=== PATIENT | male | born 1935 | race Caucasian/White ===

== ENCOUNTER 2018-02-04 23:03 | Inpatient (IN) | payer MEDICARE, BC ==
[~2018-02-04] VITALS: Ht 167.6 cm; Wt 68.9 kg
[2018-02-04] MEDS ORDERED: hydrALAZINE HCL IV 20 MG VIAL ONE ×2 (23:13→23:59)
--- NOTE | 2018-02-04 23:25 | NUR ---
BBRA FROM HOME C/C BY PT "I WENT TO USE RESTROOM LAST NIGHT AND FELT WEAK IN MY LEGS; CONTINUED FEELING WEAK ALL DAY AND LAST HAD CEREAL AT 0800 TODAY; 89G/DL FSBS". PT DENIES HAVING ANY PAIN AT TIME OF ARRIVAL. PT DENIES CP, SOB, COUGH. PT ABLE TO ARTICULATE HIS WORDS WITHOUT ANY SPEACH IMPEDIMENTS NOTED. EQUAL SENSATIONS BILATERAL. FACIAL SYMETRY NOTED. NO S/S OF ACUTE DISTRESS NOTED. RR EVEN AND UNLABORED. PT ABLE TO MOVE BILATERAL LOWER EXTREMITIES AND MOVE HIMSELF UP IN BED. PT PLACED ON PLUGGER MAN AND POX. PT SAFETY AND COMFORT MEASURES IN PLACE. BEDSIDE FOR EVAL.
[2018-02-04 23:29] LABS: BASOPHILS # (AUTO) 0.1 /CMM (0.0-0.2); BASOPHILS % (AUTO) 0.8 % (0.0-2.0); EOSINOPHILS % (AUTO) 0.9 % (0.0-6.0); HEMATOCRIT 34 % (39-51); HEMOGLOBIN 11.3 g/dL (13.5-17.5); LYMPHOCYTES # (AUTO) 0.4 /CMM (0.8-4.8); LYMPHOCYTES % (AUTO) 5.4 % (20.0-44.0); MEAN CORPUSCULAR HGB CONC 34 g/dl (31.0-36.0); MEAN CORPUSCULAR VOLUME 97 fL (80-96); MONOCYTES # (AUTO) 0.5 /CMM (0.1-1.30); MONOCYTES % (AUTO) 6.7 % (2.0-12.0); NEUTROPHILS # (AUTO) 6.8 /CMM (1.8-8.9); NEUTROPHILS % (AUTO) 86.2 % (43.0-81.0); PLATELET COUNT (AUTO) 247 /CMM (150-450); RED BLOOD CELL COUNT(AUTO) 3.46 MIL/uL (4.5-6.0); WHITE BLOOD COUNT (AUTO) 7.9 K/uL (4.3-11.0)
[2018-02-04] MEDS ORDERED: hydrALAZINE HCL IV 20 MG VIAL IV ONE (23:30)
--- NOTE | 2018-02-04 23:34 | NUR ---
pt to ct
[2018-02-04 23:41] LABS: CALCIUM, SERUM 8.4 mg/dL (8.5-10.1); CARBON DIOXIDE 22 mmol/L (21-32); CHLORIDE 101 mmol/L (98-107); CREATININE 6.7 mg/dL (0.6-1.3); GLUCOSE 104 mg/dL (74-106); POTASSIUM 4.4 mmol/L (3.5-5.1); SODIUM SERUM 138 mmol/L (136-145); UREA NITROGEN, BLOOD 49 mg/dL (7-18)
--- NOTE | 2018-02-04 23:45 | NUR ---
PT BACK FROM CT
[2018-02-04 23:47] LABS: ALANINE AMINOTRANSFERASE 16 U/L (12-78); ALKALINE PHOSPHATASE 60 U/L (46-116); ASPARTATE AMINOTRANSFERASE 13 U/L (15-37); BILIRUBIN,DIRECT 0.1 mg/dL (0.0-0.2); BILIRUBIN,TOTAL 0.3 mg/dL (0.2-1.0); TOTAL PROTEIN, SERUM 7.3 g/dL (6.4-8.2)
--- NOTE | 2018-02-04 23:47 | NUR ---
URINAL PROVIDED TO PT. PT STATES HE IS UNABLE TO GIVE URINE SAMPLE AT THIS TIME
[2018-02-05] VITALS (7 sets, daily range): BP systolic 128–188; BP diastolic 64–95
[2018-02-05] MEDS ORDERED: hydrALAZINE HCL IV 20 MG VIAL IV ONE
--- NOTE | 2018-02-05 00:07 | NUR ---
DAUGHTER BEDSIDE WITH PT
--- NOTE | 2018-02-05 00:26 | NUR ---
WATER AND JUICES PROVIDED TO PT. PT ABLE TO DRINK FLUIDS WITHOUT COUGHING OR JOKING.
[2018-02-05] MEDS ORDERED: IV NS 0.9% 500 ML BAG IV ONE (00:30)
--- NOTE | 2018-02-05 01:55 | NUR ---
REPORT GIVEN TO LOVE BUTLER FOR ISAMAR
[2018-02-05] MEDS ORDERED: ROSU20TA2 PO (02:37)
[2018-02-05] MEDS ORDERED: CLOP75TA15 PO (02:37)
[2018-02-05] MEDS ORDERED: HYDR-4076 PO (02:37)
[2018-02-05] MEDS ORDERED: ERYT30GE8 TP (02:37)
[2018-02-05] MEDS ORDERED: HYDR-4077 PO (02:37)
[2018-02-05] MEDS ORDERED: GANC5GEL2 OP (02:37)
[2018-02-05] MEDS ORDERED: VALA10002 PO (02:37)
[2018-02-05] MEDS ORDERED: ASPI-605 PO (02:37)
[2018-02-05] MEDS ORDERED: DILT-32 PO (02:37)
[2018-02-05] MEDS ORDERED: Z GUARD REMEDY 2 OZ OINT TP PRN (03:00)
[2018-02-05] MEDS ORDERED: ONDANSETRON HCL/PF 4 MG/2 ML VIAL IVP PRN (03:00)
[2018-02-05] MEDS ORDERED: ZOLPIDEM TARTRATE 5 MG TABLET PO PRN (03:00)
[2018-02-05] MEDS ORDERED: MAG HYDROX/AL HYDROX/SIMETH 30 ML UDC PO PRN (03:00)
[2018-02-05] MEDS ORDERED: MAGNESIUM HYDROXIDE 30 ML UDC PO PRN (03:00)
[2018-02-05] MEDS: IV NS 0.9% 1,000 ML IV PRN ×2 (04:01→17:29)
[2018-02-05] MEDS: ACETAMINOPHEN 325 MG TABLET PO PRN (04:04)
--- NOTE | 2018-02-05 05:43 | NUR ---
ENDING NOTES: TYLENOL GIVEN FOR H/A PAIN WITH RELIEF. NOTED ALERT AND HE IS AWARE HE IS CONFUSED AT TIMES. HE WILL YELL OUT "HELP IS ANY OUT THERE, I NEED HELP" WHEN AWNSWERED HIM I NOTED HE JUST NEEDS TO BE REORIENTATED, HE SEEMS FRIEGHTENED WITH AT TIMES CONFUSION. TV ON TO HELP HIM STAY ORIENTATED. OWN CPAP MACHINE AT THE BEDSIDE.
[2018-02-05 06:47] LABS: THYROID STIMULATING HORMONE 4.315 uIU/mL (0.358-3.74)
--- NOTE | 2018-02-05 07:00 | NUR ---
CONVEYOR LOADER NOTES RECEIVED PT IN BED, A/OX2. PT IS COMPLAINING OF "THE ROOM MOVING" AND "SEEING GREEN." PT IS ON ROOM AIR O2 SAT WNL. AV SHUNT IN LEFT ARM. RFA IV NO S/SX INFECTION. IV FLUIDS RUNNING. ON CONTACT ISOLATION FOR SHINGLES ON FACE WITH CRUSTING NOTED. PER DAUGTER, THEY WOULD LIKE TO CONTINUE TX AT [facility] WHERE THEY HAVE BEEN TREATED. ON TELE PT IS [facility] 103. PT IS WEAK BLE; BED ALARM ACTIVATED AND DAUGHTER AT BEDSIDE. CALL LIGHT IN REACH. WILL CONT TO MONITOR.
--- NOTE | 2018-02-05 07:30 | NUR ---
DESIGN SUPERVISOR NOTES PER DAUGHTER, PT IS MORE CONFUSED AND HALLUCINATING THAN LAST NIGHT. SUSPECTS ADVERSE EFFECT OF VALTREX, WILL NOTIFY MD.
[2018-02-05] MEDS: hydrALAZINE HCL 25 MG TABLET PO PRN ×2 (07:53→21:22)
--- NOTE | 2018-02-05 08:15 | NUR ---
INSURANCE RATER NOTES DIALYSIS STARTED ON PT. BP NOW 156/83 AFTER HYDRALAZINE. PT DOES NOT TAKE BP MEDS BEFORE HD INCLUDING ASPIRIN, PLAVIX AND LOVENOX PER DAUGHTER.
[2018-02-05] MEDS: hydrALAZINE HCL 50 MG TABLET PO SCH ×3 (08:58→17:18)
[2018-02-05] MEDS: DILTIAZEM HCL CD 120 MG PO SCH (08:59)
[2018-02-05] MEDS ORDERED: CLOPIDOGREL BISULFATE 75 MG TABLET PO SCH (09:00)
[2018-02-05] MEDS: VALACYCLOVIR HCL 500 MG TABLET PO SCH ×3 (09:00→17:00)
[2018-02-05] MEDS ORDERED: ASPIRIN EC 81 MG TABLET.DR PO SCH (09:00)
[2018-02-05] MEDS ORDERED: ENOXAPARIN SODIUM 40 MG/0.4 ML DISP.SYRIN SQ SCH (09:00)
[2018-02-05] MEDS: ATORVASTATIN 40 MG TABLET PO SCH (10:18)
--- NOTE | 2018-02-05 11:51 | NUR ---
SOIL CONSERVATION AIDE NOTES PER DR GONZALEZ, YOHANNES VALROSS. NEUROLOGY TO EVALUATE PT FOR AMS. OK FOR PT TO USE EYE OINTMENT FROM HOME.
--- NOTE | 2018-02-05 12:45 | NUR ---
CARBONIZER TESTER NOTE PER RADIOLOGY (GONZALO) PT WILL NOT BE ABLE TO HAVE MRI WITH CONTRAST D/T ELEVATED BUN/CREATININE LEVELS; CAN DO BEFORE NEXT DIALYSIS.
[2018-02-05] MEDS ORDERED: ERYT3.5O9 EACHEYE (17:15)
[2018-02-05] MEDS: HYDROCODONE/APAP 5/325MG 1 EACH TABLET PO PRN (17:18)
[2018-02-05 17:53] LABS: CSF GLUCOSE 76 mg/dL (40-70); CSF PROTEIN 46.6 mg/dL (15-45)
--- NOTE | 2018-02-05 18:54 | NUR ---
STATION ENGINEER CHIEF NOTES DR AUGUST TO BE NOTIFIED OF CSF RESULTS AT [phone]
[2018-02-05] MEDS ORDERED: CEFTRIAXONE 1 G VIAL IV SCH (19:30)
--- NOTE | 2018-02-05 19:30 | NUR ---
VISCERA WASHER NOTES PT IN BED, SITTING UP. DAUGHTER AT BEDSIDE. PT IS ANXIOUS; HALLUCINATING. ALL NEEDS ATTENDED TO. ENDORSED TO PM NURSE FOR ISAMAR. BED IN LOCKED/LOWEST POSITION. CALL LIGHT IN REACH.
[2018-02-05] MEDS ORDERED: FEE PK DOSING 1 MIN EA MC ONE (20:19)
[2018-02-05] MEDS ORDERED: VANCOMYCIN 1 GM in IV D5W 250 ML IV ONE (20:30)
[2018-02-05] MEDS ORDERED: ACYCLOVIR IV 1 GM in IV NS 0.9% 250 ML IV SCH (21:00)
[2018-02-05] MEDS ORDERED: ACYCLOVIR IV 500 MG in IV D5W 100 ML IV SCH (21:00)
--- NOTE | 2018-02-05 21:03 | NUR ---
SPORTS INSTRUCTOR OPENING NOTES RECEIVED REPORT FROM ANA LUISA ALEMAN. PATIENT A/A/O X1 TO NAME W/ CONFUSION NOTED. BREATHING EVEN & UNLABORED, TOLERATING ROOM AIR. NO RESPIRATORY DISTRESS NOTED. ON TELE W/ SINUS TACH, HR 120. RIGHT FOREARM IV #20 INTACT & PATENT W/ DRESSING CDI & IVF NS INFUSING WELL @ 75 ML/HR. DENIES ANY PAIN OR DISCOMFORT @ THIS TIME. SAFETY MEASURES IN PLACE W/ SIDE RAILS UP & BED ALARM ON. WILL CONTINUE TO MONITOR.
[2018-02-05] MEDS ORDERED: CEFTRIAXONE 2 G in IV D5W 100 ML IV SCH (22:00)
[2018-02-06] VITALS (18 sets, daily range): BP systolic 137–188; BP diastolic 58–131
[2018-02-06] MEDS ORDERED: LORAZEPAM INJ 2 MG/ML VIAL IV ONE ×2 (01:00→11:30)
[2018-02-06] MEDS ORDERED: IV NS 0.9% 250 ML IV ONE (01:00)
--- NOTE | 2018-02-06 01:00 | NUR ---
COLLECTION TEAM LEAD NOTES PATIENT NOTED TO BE VERY RESTLESS W/ SOB & DESATTING. DR HOOD NOTIFIED OF PATIENT'S CONDITION & RECEIVED NEW ORDERS FOR X1 ATIVAN, ABG, EKG & ROUTINE BREATHING TX. NEW ORDERS NOTED & CARRIED OUT.
[2018-02-06] MEDS ORDERED: PIPERACILLIN /TAZOBACTAM 2.25 G VIAL IV ONE (01:19)
[2018-02-06 01:20] LABS: ABG BASE EXCESS -2.5 mmol/L; ABG OXYGEN SATURATION 93.6 % (92.0-98.5); ABG PCO2 30.5 mmHg (35.0-45.0); ABG PH 7.449 (7.350-7.450); ABG PO2 70.8 mmHg (75.0-100.0); AaDO2 121.7 mmHg; COHb 0.5 % (0.5-1.5); MetHb 0.5 % (0.0-1.5); O2Hb 92.7 % (94.0-97.0); SITE, ABG Right Radial; VENT MODE, BG NC 4L
[2018-02-06] MEDS ORDERED: ZOSYN IVPB 2.25 G in IV D5W 50ml IV ONE (01:30)
[2018-02-06] MEDS: IPRATROPIUM NEB FS 0.5 MG/2.5 ML AMPUL.NEB NEB SCH ×7 (01:36→23:30)
[2018-02-06] MEDS ORDERED: PIPERACILLIN /TAZOBACTAM 4.5 G in IV D5W 50 ML IV SCH (06:00)
--- NOTE | 2018-02-06 07:00 | NUR ---
CLIENT CARE SPECIALIST INITIAL NOTES RECEIVED PT IN BED, PT DISORIENTED A/OX 2. ASLEEP BUT EASILY AROUSABLE. O2 NC 4L MAINTAINING O2 ABOVE 90. IV SL NO S/SX INFECTION. BED IN LOCKED/LOWEST POSITION. CALL LIGHT IN REACH. WILL CONT TO MONITOR.
[2018-02-06 07:28] LABS: BILIRUBIN,URINE NEGATIVE (NEGATIVE); BLOOD, URINE 1+ Ery/uL (NEGATIVE); COLOR,URINE YELLOW (YELLOW); KETONES,URINE TRACE (NEGATIVE); LEUKOCYTE ESTERASE ,URINE NEGATIVE (NEGATIVE); NITRITE, URINE NEGATIVE (NEGATIVE); PH,URINE 7.5 (5.0-8.0); PROTEIN,URINE 3+ mg/dl (NEGATIVE); UGLUCOSE 1+ mg/dL (NEGATIVE); UROBILINOGEN,URINE 0.2 EU/dL (0.2)
[2018-02-06 07:38] LABS: APPEARANCE,URINE CLEAR (CLEAR)
[2018-02-06 07:55] LABS: BACTERIA,URINE Rare /HPF (None Seen); SQUAMOUS EPITHELIAL CELL,UR Rare /HPF (None Seen)
[2018-02-06 08:31] LABS: BASOPHILS % (AUTO) 0.2 % (0.0-2.0); HEMATOCRIT 31 % (39-51); HEMOGLOBIN 10.4 g/dL (13.5-17.5); LYMPHOCYTES # (AUTO) 0.2 /CMM (0.8-4.8); LYMPHOCYTES % (AUTO) 1.3 % (20.0-44.0); MEAN CORPUSCULAR HGB CONC 34 g/dl (31.0-36.0); MEAN CORPUSCULAR VOLUME 96 fL (80-96); MONOCYTES # (AUTO) 0.6 /CMM (0.1-1.30); MONOCYTES % (AUTO) 4.4 % (2.0-12.0); NEUTROPHILS % (AUTO) 94.1 % (43.0-81.0); PLATELET COUNT (AUTO) 281 /CMM (150-450); RED BLOOD CELL COUNT(AUTO) 3.21 MIL/uL (4.5-6.0); WHITE BLOOD COUNT (AUTO) 12.7 K/uL (4.3-11.0)
[2018-02-06 08:35] LABS: CHOLESTEROL 152 mg/dL (<200); HDL CHOLESTEROL 69 mg/dL (40-60); LDL 78 mg/dL (0-99); TRIGLYCERIDES 61 mg/dL (30-150)
[2018-02-06 08:37] LABS: CALCIUM, SERUM 8.1 mg/dL (8.5-10.1); CARBON DIOXIDE 21 mmol/L (21-32); CHLORIDE 97 mmol/L (98-107); CREATININE 5.3 mg/dL (0.6-1.3); GLUCOSE 154 mg/dL (74-106); PHOSPHORUS 6.3 mg/dL (2.5-4.9); POTASSIUM 4.5 mmol/L (3.5-5.1); SODIUM SERUM 134 mmol/L (136-145); UREA NITROGEN, BLOOD 39 mg/dL (7-18)
[2018-02-06] MEDS: ASPIRIN 81 MG TAB.CHEW PO SCH (08:53)
[2018-02-06] MEDS: HYDROCODONE/APAP 5/325MG 1 EACH TABLET PO PRN (08:53)
[2018-02-06] MEDS: PIPERACILLIN /TAZOBACTAM 2.25 G in IV D5W 50 ML IV SCH ×2 (09:55→17:37)
[2018-02-06] MEDS: hydrALAZINE HCL 50 MG TABLET PO SCH ×4 (10:02→17:35)
[2018-02-06] MEDS: ATORVASTATIN 40 MG TABLET PO SCH (10:03)
[2018-02-06] MEDS: DILTIAZEM HCL CD 120 MG PO SCH (10:03)
[2018-02-06 13:08] LABS: VARICELLA ZOSTER IgG >4000 index (Immune >165)
--- NOTE | 2018-02-06 15:48 | NUR ---
CSF VZV WITH PCR SENT TO LAB, TAKES 72H
--- NOTE | 2018-02-06 17:00 | NUR ---
SHRAVAN RN NOTES PT TRANSFERRED TO ICU. REPORT GIVEN TO LOVE SCHNEIDER. DAUGHTERS AT BEDSIDE. ALL BELONGINGS SENT WITH PT.
[2018-02-06] MEDS: CLOPIDOGREL BISULFATE 75 MG TABLET PO SCH (17:35)
[2018-02-06] MEDS: METOPROLOL TARTRATE 50 MG TABLET PO SCH ×2 (17:36→23:25)
--- NOTE | 2018-02-06 17:54 | NUR ---
INITIAL ECHO FINDINGS SHOWED EF 55-60%~ W/ SEVERE PULM HTN 70mmHg AND PRESENCE OF PLEURAL EFFUSION. ADVISED PRELIMINARY RESULTS TO CHARGE NURSE (CONSUELO).
[2018-02-06] MEDS ORDERED: ACYCLOVIR IV 0.75 GM in IV D5W 250 ML IV SCH (18:00)
--- NOTE | 2018-02-06 18:04 | NUR ---
received pt from SHRAVAN, s/p AMS, NSTEMI, alert, confused, follows commands at times, ST, on 4L 02 sat well, lungs congested, no edema, HD pt, v/s stable, no pain, sitter at the bedside.
[2018-02-06] MEDS ORDERED: HEPARIN SODIUM, PORCINE 5000 UNITS/1 ML VIAL IV ONE (18:30)
--- NOTE | 2018-02-06 19:10 | NUR ---
ICU/RM RECEIVED PT ON VENT VIA ORAL ETT ON A/C 10,30%FI02 SAT.95%.PT AWAKE ALERT ORIENTED TO NAME,RE-ORIENTED TO TIME ,PLACE AND SURROUNDINGS.
--- NOTE | 2018-02-06 20:00 | NUR ---
ICU/RN RECEIVED PT YELLING,RESTLESS AND COMBATIVE.SITTER AT BEDSIDE,PT KEEPS TAKING OFF OXYGEN.SO BILATERAL SOFT WRIST RESTRAINTS RE-APPLIED.PT UNCOOPERATIVE.
[2018-02-06] MEDS: HEPARIN INFUSION/D5W 500 ML IV PRN (20:20)
--- NOTE | 2018-02-06 20:20 | NUR ---
ICU/RN. ON HEPARIN DRIP AT 1000UNITS/HR AFTER BOLUS OF 4,700 HEPARIN.
[2018-02-07] VITALS (24 sets, daily range): BP systolic 106–172; BP diastolic 45–99
--- NOTE | 2018-02-07 | NUR ---
ICU/RN SPITS AT NURSE AFTER GIVING LOPRESSOR PO,THEN YELLS INCOMPREHENSIBLE WORDS.TALK TO SELF.ATTEMPTS TO TAKE OFF RESTRAINTS..EXPLAINED IMPORTANCE OF RESTRAINTS AND REASSURED PT.THAT IT WILL BE DC'D,IF HE BEHAVES.
[2018-02-07] MEDS: PIPERACILLIN /TAZOBACTAM 2.25 G in IV D5W 50 ML IV SCH ×2 (01:10→08:10)
[2018-02-07] MEDS: IPRATROPIUM NEB FS 0.5 MG/2.5 ML AMPUL.NEB NEB SCH ×6 (02:46→23:49)
--- NOTE | 2018-02-07 04:00 | NUR ---
ICU/RN HELPED SITTER TO BATHED PT.,ANTONIO. WITH DIFFICULTY PT VERY UNCOOPERATIVE
[2018-02-07 04:53] LABS: HEMATOCRIT 29 % (39-51); HEMOGLOBIN 9.6 g/dL (13.5-17.5); LYMPHOCYTES # (AUTO) 0.3 /CMM (0.8-4.8); LYMPHOCYTES % (AUTO) 2.4 % (20.0-44.0); MEAN CORPUSCULAR HGB CONC 33 g/dl (31.0-36.0); MEAN CORPUSCULAR VOLUME 96 fL (80-96); MONOCYTES # (AUTO) 0.9 /CMM (0.1-1.30); MONOCYTES % (AUTO) 6.3 % (2.0-12.0); NEUTROPHILS # (AUTO) 12.6 /CMM (1.8-8.9); NEUTROPHILS % (AUTO) 91.3 % (43.0-81.0); PLATELET COUNT (AUTO) 286 /CMM (150-450); RED BLOOD CELL COUNT(AUTO) 3.03 MIL/uL (4.5-6.0); WHITE BLOOD COUNT (AUTO) 13.8 K/uL (4.3-11.0)
[2018-02-07 05:17] LABS: CALCIUM, SERUM 8.3 mg/dL (8.5-10.1); CARBON DIOXIDE 24 mmol/L (21-32); CHLORIDE 97 mmol/L (98-107); CREATININE 6.8 mg/dL (0.6-1.3); GLUCOSE 126 mg/dL (74-106); POTASSIUM 4.6 mmol/L (3.5-5.1); SODIUM SERUM 133 mmol/L (136-145); UREA NITROGEN, BLOOD 57 mg/dL (7-18)
[2018-02-07 05:47] LABS: B-TYPE NATRIURETIC PEPTIDE 136901 PG/ML (0-125)
[2018-02-07] MEDS: METOPROLOL TARTRATE 50 MG TABLET PO SCH ×4 (05:53→23:04)
--- NOTE | 2018-02-07 07:42 | NUR ---
FEATHER WASHER NOTE PATENT ION BED , YELLING OUT AND RESTLESS , ON TELE MONITOR SR HR 84 , ON 4L NC SAT 96%. ON HEPARIN DRIP ORDERED, RT FA HL INTACT , BED IN LOWEST ND LOCKED POSITION , NO SOB NOTED AT THIS TIME , AV SHUNT ON LT ARM WITH POSITIVE BRUIT AND THRILL, WILL CONT TO MONITOR CLOSELY
[2018-02-07] MEDS: CLOPIDOGREL BISULFATE 75 MG TABLET PO SCH (08:09)
[2018-02-07] MEDS: ATORVASTATIN 40 MG TABLET PO SCH (08:09)
[2018-02-07] MEDS: ASPIRIN 81 MG TAB.CHEW PO SCH (08:09)
[2018-02-07] MEDS: hydrALAZINE HCL 50 MG TABLET PO SCH ×3 (08:09→16:49)
[2018-02-07] MEDS: DILTIAZEM HCL CD 120 MG PO SCH (08:10)
--- NOTE | 2018-02-07 09:15 | NUR ---
CLOTH FINISHING RANGE OPERATOR NOTE DOING DOPPLER STUDY AT THIS TIME, ALL NEEDS ATTENDED, ASSISTED TO FEED .PATIENT ATE 10% OF DIET .TOOK MEDS WELL
--- NOTE | 2018-02-07 10:00 | NUR ---
MEDICATION TECH NOTE DR GONZALEZ AT BEDSIDE NOTIFIED THAT NOTED WHIZZING UPON AUSCULTATION , STATED WILL ORDER CHEST X RAY AND TROPONIN SERIES
--- NOTE | 2018-02-07 10:26 | NUR ---
BUSINESS CONTINUITY STRATEGY DIRECTOR NOTE HD NURSE AT BEDSIDE ,WILL DO HD NOW . ALSO DR IBANEZ AT BEDSIDE ORDERED NEURO CONSULT WITH DR DIAZ , CHARGE NURSE SPOKE WITH WITH ORDER SEQUEL 25 MG Q12 HOUR, PTT 32.5 PER HOSPITAL PROTOCOL CHANCED DOSE OF HEPARIN 1300UNITS\HR , ALSO DR IBANEZ NOTIFIED THAT TROPONIN 5.432 AND BNP [id number]
[2018-02-07] MEDS: QUETIAPINE FUMARATE 25 MG TABLET PO SCH ×2 (10:36→20:07)
--- NOTE | 2018-02-07 12:10 | NUR ---
NORMALIZER NOTE PATIENT ON HD,HOLD BM MEDS AT THIS TIME Addendum: 02/07/18 at 1301 by MARGARITA MUELLER RN HOLD BP MEDS
--- NOTE | 2018-02-07 12:11 | NUR ---
BLADE SHARPENER NOTE BLOOD CX DROWN AND FAXED REQUEST TO RELEASE MEDICAL INFORMATION FROM [facility] PER ORDER
--- NOTE | 2018-02-07 13:01 | NUR ---
HUB BORER NOTE DR COCHRAN NEUROLOGIST AT BEDSIDE, SEEN PATIENT, NOTIFIED THAT PATIENT STILL RESTLESS AND AGITATED ,STATED O TO GIVE SEROQUEL 25 MG AFTER HD AND THEN CALL TO
--- NOTE | 2018-02-07 13:08 | NUR ---
LOCATION MANAGER NOTE UNABLE TO GIVE MEDS AT 1300 ,HITESH ON HD AT THIS TIME, WILL GIVE LATTER ON
[2018-02-07] MEDS ORDERED: QUETIAPINE FUMARATE 25 MG TABLET PO ONE (13:30)
[2018-02-07] MEDS: MEROPENEM 500 MG in IV NS 0.9% 100 ML IV SCH (14:11)
[2018-02-07] MEDS: MICAFUNGIN SODIUM IV SCH (14:17)
[2018-02-07] MEDS: NS 0.9% IV SCH (14:17)
--- NOTE | 2018-02-07 15:00 | NUR ---
CUSTOMER SERVICE ADMINISTRATOR NOTE INFLUENZA SPECIMEN COLLECTED ORDERED , ALSO BREATHING TX DONE ,PER FAMILY REQUEST DONE , PER FAMILY OK TO TO START ZIRGAN LT EYE GEL OK PER DR GONZALEZ . HD COMPLECTED REMOVED 3L OF FLUIDS BP 143/88 HR 93. CHEST X RAY DONE ORDERED
[2018-02-07] MEDS: VANCOMYCIN 500 MG in IV D5W 100 ML IV PRN (15:13)
--- NOTE | 2018-02-07 15:47 | NUR ---
SLAT PICKLER NOTE PER DR MARIANGEL ZARATE TO GIVE SEROQUEL 25 MG BID PRN AGITATION
[2018-02-07] MEDS: HEPARIN INFUSION/D5W 500 ML IV PRN (15:53)
--- NOTE | 2018-02-07 17:10 | NUR ---
STARS ANALYTICAL LEAD NOTE UNABLE TO REMOVE RESTRAIN AT RISK TO REMOVE ALL LINES AND TRYING TO GET OUT OFF BED
[2018-02-07] MEDS: GANCICLOVIR LEFTEYE SCH ×2 (17:14→20:08)
[2018-02-07] MEDS ORDERED: HEPARIN SODIUM, PORCINE 5000 UNITS/1 ML VIAL IV ONE (18:00)
--- NOTE | 2018-02-07 18:00 | NUR ---
SALES REPRESENTATIVE PUBLIC UTILITIES NOTE PTT 27.5 PER HOSPITAL PROTOCOL GIVE BOLUS 4200 UNITS WITH HEPARIN AND THEN INCREASE BY 200 UNITS /HR WHICH 1500 UNIT\HR TO ADMINISTER
--- NOTE | 2018-02-07 19:30 | NUR ---
BUSINESS SUPPORT COORDINATOR INITIAL SHIFT NOTES RECEIVED PATIENT IN BED, AWAKE, AGITATED, CONFUSED, ABLE TO FOLLOW ONLY SIMPLE COMMANDS BEFORE YELLING OUT. BREATHING EVEN AND NONLABORED WHILE ON O2 VIA NC @ 4LPM, TOLERATING WELL, FREE FROM ANY S/S OF RESPIRATORY DISTRESS. BEDSIDE MONITOR READS AFIB, HR = 128BPM AT THIS TIME. KOBI MIDLINE PATENT AND INTACT, HEPARIN GTT CURRENTLY INFUSING @ 1500 UNITS/HR. PATIENT REPOSITIONED FOR COMFORT. BED KEPT IN LOWEST AND LOCKED POSITION WITH CALL LIGHT WITHIN EASY REACH. WILL CONTINUE TO CLOSELY MONITOR
[2018-02-07] MEDS: ACYCLOVIR IV 0.75 GM in IV D5W 250 ML IV SCH (20:06)
[2018-02-07] MEDS: hydrALAZINE HCL 25 MG TABLET PO PRN (20:14)
[2018-02-07] MEDS: QUETIAPINE FUMARATE 25 MG TABLET PO PRN (22:59)
--- NOTE | 2018-02-07 23:00 | NUR ---
MEDICAL TECHNOLOGIST NOTES PATIENT REMAINS AGITATED. ATTEMPTED TO REORIENT PATIENT, INEFFECTIVE, PATIENT CONTINUES TO SCREAM/YELL OUT. PRN SEROQUEL ADMINISTERED. WILL CONTINUE TO CLOSELY MONITOR THE PATIENT
[2018-02-08] VITALS (32 sets, daily range): BP systolic 85–175; BP diastolic 50–115
--- NOTE | 2018-02-08 | NUR ---
GASOLINE POWER SHOVEL OPERATOR NOTES PTT 37.0. HEPARIN GTT ADJUSTED PER SCALE TO 1650 UNITS/HR, PROPER DOSE CONFIRMED WITH CHARGE NURSE ED
[2018-02-08] MEDS: MEROPENEM 500 MG in IV NS 0.9% 100 ML IV SCH ×2 (01:59→13:31)
[2018-02-08] MEDS: IPRATROPIUM NEB FS 0.5 MG/2.5 ML AMPUL.NEB NEB SCH ×6 (03:15→23:30)
--- NOTE | 2018-02-08 04:16 | NUR ---
CHEMICAL COMPOUNDER NOTES PATIENT AGAIN RESTLESS/AGITATED, YELLING CONSTANTLY. ATTEMPTED TO REORIENT, BUT INEFFECTIVE. DR HOOD MADE AWARE AND WITH NEW ORDER FOR ATIVAN 1MG IVP X1 NOW. WILL ADMINISTER AND CONTINUE CLOSE MONITORING
[2018-02-08] MEDS ORDERED: LORAZEPAM INJ 2 MG/ML VIAL IV ONE (04:30)
[2018-02-08 05:58] LABS: EOSINOPHILS % (AUTO) 0.1 % (0.0-6.0); HEMATOCRIT 28 % (39-51); HEMOGLOBIN 9.5 g/dL (13.5-17.5); LYMPHOCYTES # (AUTO) 0.3 /CMM (0.8-4.8); LYMPHOCYTES % (AUTO) 2.2 % (20.0-44.0); MEAN CORPUSCULAR HGB CONC 33 g/dl (31.0-36.0); MEAN CORPUSCULAR VOLUME 98 fL (80-96); MONOCYTES # (AUTO) 1.1 /CMM (0.1-1.30); MONOCYTES % (AUTO) 8.4 % (2.0-12.0); NEUTROPHILS # (AUTO) 11.2 /CMM (1.8-8.9); NEUTROPHILS % (AUTO) 89.3 % (43.0-81.0); PLATELET COUNT (AUTO) 197 /CMM (150-450); WHITE BLOOD COUNT (AUTO) 12.6 K/uL (4.3-11.0)
[2018-02-08] MEDS: METOPROLOL TARTRATE 50 MG TABLET PO SCH ×3 (06:08→18:00)
[2018-02-08 06:15] LABS: CALCIUM, SERUM 7.8 mg/dL (8.5-10.1); CARBON DIOXIDE 22 mmol/L (21-32); CHLORIDE 99 mmol/L (98-107); CREATININE 5.5 mg/dL (0.6-1.3); GLUCOSE 112 mg/dL (74-106); POTASSIUM 4.1 mmol/L (3.5-5.1); SODIUM SERUM 135 mmol/L (136-145); UREA NITROGEN, BLOOD 53 mg/dL (7-18)
--- NOTE | 2018-02-08 07:00 | NUR ---
WELL TENDER CLOSING NOTES PATIENT RESTING IN BED, ATIVAN EFFECTIVE. WILL ENDORSE THE PATIENT TO THE AM SHIFT NURSE FOR CONTINUITY OF CARE
--- NOTE | 2018-02-08 07:45 | NUR ---
HEPARIN GTT STOPPED.
--- NOTE | 2018-02-08 08:00 | NUR ---
PT SLEEKING, AROUSABLE WITH TACTILE STIMULATION, PUPILS 3+ REACTIVE , EQUAL. PT DOES NOT FOLLOW COMMANDS. DAUGHTER AT BEDSIDE STATES THAT PT WAS ALTERED YESTERDAY AND WAS NOT ABLE TO RECOGNIZE HER. PT RECEIVED ATIVAN AT 0430 AM. WILL CONTINUE TO MONITOR WILL HOLD AM TRAY, DUE TO ALOC.
[2018-02-08] MEDS: CLOPIDOGREL BISULFATE 75 MG TABLET PO SCH ×2 (09:00→09:18)
[2018-02-08] MEDS: DILTIAZEM HCL CD 120 MG PO SCH ×2 (09:00→09:19)
[2018-02-08] MEDS: ASPIRIN 81 MG TAB.CHEW PO SCH ×2 (09:00→09:20)
[2018-02-08] MEDS: ATORVASTATIN 40 MG TABLET PO SCH ×2 (09:00→09:20)
[2018-02-08] MEDS: QUETIAPINE FUMARATE 25 MG TABLET PO SCH ×3 (09:00→20:11)
[2018-02-08] MEDS: hydrALAZINE HCL 50 MG TABLET PO SCH ×4 (09:00→17:00)
[2018-02-08] MEDS: HEPARIN SODIUM, PORCINE 5000 UNITS/1 ML VIAL SQ SCH ×2 (09:22→20:16)
[2018-02-08] MEDS: GANCICLOVIR LEFTEYE SCH ×5 (09:24→20:15)
--- NOTE | 2018-02-08 10:00 | NUR ---
PT IS MORE AWAKE BUT DOES NOT FOLLOW COMMANDS. ASSISTED WITH ORAL HYGIENE ONE LARGE BM NOTED. ASSISTED WITH FULL BED BATH ANDS SKIN CARE. PO MEDS HELD DUE TO ALOC.
--- NOTE | 2018-02-08 11:00 | NUR ---
DR GONZALEZ AND DR BARKER HERE TO SEE PT. LUE JERKING MOVEMENT NOTED AND ADDRESSED WITH DR GONZALEZ. EEG ORDERED.
[2018-02-08] MEDS: NS 0.9% IV SCH (12:29)
[2018-02-08] MEDS: MICAFUNGIN SODIUM IV SCH (12:29)
[2018-02-08] MEDS ORDERED: AMIODARONE 900 MG in IV D5W 482 ML IV PRN (14:00)
[2018-02-08] MEDS ORDERED: AMIODARONE 150 MG in IV D5W 100 ML IV ONE (14:00)
[2018-02-08] MEDS: hydrALAZINE HCL IV 20 MG VIAL IV PRN (15:22)
--- NOTE | 2018-02-08 15:29 | NUR ---
BP 162/94 HYDRALAZINE 10MG IV
--- NOTE | 2018-02-08 15:29 | NUR ---
PT HR A FIB UP TO 129. DR IBANEZ NOTIFIED AMIODARONE BOLUS AND DRIP ORDERED. INITIATED AT 1430.
[2018-02-08 17:07] LABS: *HSV 2 DNA PCR Negative (Negative)
[2018-02-08 17:36] LABS: THYROID STIMULATING HORMONE 1.892 uIU/mL (0.358-3.74)
[2018-02-08 17:42] LABS: C-REACTIVE PROTEIN 8.6 mg/dL (0.0-0.9)
--- NOTE | 2018-02-08 18:55 | NUR ---
1800 PT NOTED TO HAVE YET ANOTHER BM LIQUID AND SOFT, THIS TIME STOOL IS BLACK. DR GONZALEZ PAGED VIA [facility].
[2018-02-08] MEDS: METOPROLOL TARTRATE INJ 5 MG/5 ML AMPUL IVP PRN (19:30)
[2018-02-08] MEDS: ACYCLOVIR IV 0.75 GM in IV D5W 250 ML IV SCH (20:11)
--- NOTE | 2018-02-08 22:15 | NUR ---
SHRAVAN/RN NOTES: RECEIVED PT. VIA BED W/ ICU CHARGE NURSE ED. PT. IS ALERT TO NAME. SPEECH IS CLEAR . ON WILLIAN. SOFT WRIST RESTRAINTS DUE TO PT. BEING AGITATED AND PULLING OUT TUBES. ON TELE MONITOR AFIB UNCONTROLLED 120'S. HAS AMIODARONE DRIP AT 0.5 MG/HR. HAS ONE BROWN SOFT BM. W/ O2 @ 3-4 LPM VIA N/C SAT. 100 %. NO FACIAL GRIMACES OR MOANING NOTED. WILL CONTINUE TO MONITOR.
[2018-02-09] VITALS: BP 157/83
[2018-02-09] MEDS: METOPROLOL TARTRATE INJ 5 MG/5 ML AMPUL IVP PRN ×2 (01:15→15:34)
[2018-02-09] MEDS: MEROPENEM 500 MG in IV NS 0.9% 100 ML IV SCH ×2 (02:35→17:55)
[2018-02-09] MEDS: IPRATROPIUM NEB FS 0.5 MG/2.5 ML AMPUL.NEB NEB SCH ×6 (03:33→23:30)
[2018-02-09 04:00] VITALS: BP 151/75
[2018-02-09 05:16] LABS: OCCULT BLOOD STOOL POSITIVE (NEGATIVE)
[2018-02-09] MEDS: METOPROLOL TARTRATE 50 MG TABLET PO SCH ×3 (05:59→12:00)
[2018-02-09 06:25] LABS: BASOPHILS % (AUTO) 0.1 % (0.0-2.0); EOSINOPHILS % (AUTO) 0.3 % (0.0-6.0); HEMATOCRIT 29 % (39-51); HEMOGLOBIN 9.8 g/dL (13.5-17.5); LYMPHOCYTES # (AUTO) 0.3 /CMM (0.8-4.8); LYMPHOCYTES % (AUTO) 3.1 % (20.0-44.0); MEAN CORPUSCULAR HGB CONC 33 g/dl (31.0-36.0); MEAN CORPUSCULAR VOLUME 97 fL (80-96); MONOCYTES % (AUTO) 9.3 % (2.0-12.0); NEUTROPHILS # (AUTO) 9.2 /CMM (1.8-8.9); NEUTROPHILS % (AUTO) 87.2 % (43.0-81.0); PLATELET COUNT (AUTO) 249 /CMM (150-450); RED BLOOD CELL COUNT(AUTO) 3.03 MIL/uL (4.5-6.0); WHITE BLOOD COUNT (AUTO) 10.6 K/uL (4.3-11.0)
[2018-02-09 06:53] LABS: CALCIUM, SERUM 6.9 mg/dL (8.5-10.1); CARBON DIOXIDE 21 mmol/L (21-32); CHLORIDE 99 mmol/L (98-107); CREATININE 6.3 mg/dL (0.6-1.3); GLUCOSE 112 mg/dL (74-106); POTASSIUM 3.6 mmol/L (3.5-5.1); SODIUM SERUM 136 mmol/L (136-145); UREA NITROGEN, BLOOD 70 mg/dL (7-18)
--- NOTE | 2018-02-09 07:30 | NUR ---
SHRAVAN RN NOTE: RECEIVED PATIENT IN BED, ASLEEP AND NONVERBAL AT THIS TIME ON PARTICLE BOARD SUPERVISOR A. FIB HR 104. RESPIRATION EVEN AND UNLABORED ON O2 2L/MIN VIA NC AND SATURATING 97%. ON CONTACT ISOLATION FOR OCULAR (L EYE) ZOSTER. NO BEHAVIORAL ISSUES AT THIS TIME. ON AMIODARONE DRIP 0.5MG/MIN. PATIENT ON (B) SOFT WRIST RESTRAINTS AT THIS TIME, BUT PATIENT WAS VERY SLEEPY, BUT AROUSABLE WITH TACTILE STIMULI. (R) UA MIDLINE AND (R) FOREARM NOTED PATENT AND INTACT. PATIENT'S DAUGHTER SRINI CALLED AND MADE AWARE OF THE PATIENT'S CONDITION. SHE REQUESTED TO RELEASE THE RESTRAINTS AND WILL CONTINUE TO MONITOR THE PATIENT'S CONDITION AND BEHAVIOR. HOB ELEVATED. CALL LIGHT WITHIN REACH. BED ALARMED AND LOCKED AT ALL TIMES. NEEDS ANTICIPATED.
--- NOTE | 2018-02-09 07:34 | NUR ---
SHRAVAN/RN NOTES: REPORT GIVEN TO NEXT SHIFT NURSE FOR ISAMAR.
[2018-02-09 08:00] VITALS: BP 171/74
[2018-02-09] MEDS: GANCICLOVIR LEFTEYE SCH ×5 (08:13→20:36)
--- NOTE | 2018-02-09 08:22 | NUR ---
SHRAVAN RN NOTE: CALLED AND PAGED DR. WATSON RE: THE PATIENT'S BLOOD PRESSURE 171/74. PATIENT WAS REFUSING TO TAKE HIS PO MEDICATIONS. AWAITING FOR MD TO RESPOND AND GIVE ORDER.
--- NOTE | 2018-02-09 08:40 | NUR ---
SHRAVAN RN NOTE: CALLED AND SPOKE WITH CRISTIAN CUEVAS NP AND MADE HIM AWARE ABOUT THE PATIENT'S BLOOD PRESSURE AND HIS REFUSAL TO TAKE PO MEDICATIONS. HAT SPRAYER WITH NEW ORDER, NOTED AND CARRIED OUT.
[2018-02-09] MEDS ORDERED: hydrALAZINE HCL IV 20 MG VIAL IV ONE (09:00)
[2018-02-09] MEDS: hydrALAZINE HCL 50 MG TABLET PO SCH ×3 (10:00→17:00)
[2018-02-09] MEDS: CLOPIDOGREL BISULFATE 75 MG TABLET PO SCH (10:00)
[2018-02-09] MEDS: DILTIAZEM HCL CD 120 MG PO SCH (10:00)
[2018-02-09] MEDS: ASPIRIN 81 MG TAB.CHEW PO SCH (10:00)
[2018-02-09] MEDS: ATORVASTATIN 40 MG TABLET PO SCH (10:00)
[2018-02-09] MEDS: QUETIAPINE FUMARATE 25 MG TABLET PO SCH ×2 (10:00→20:36)
[2018-02-09] MEDS: HEPARIN SODIUM, PORCINE 5000 UNITS/1 ML VIAL SQ SCH ×2 (10:06→20:36)
[2018-02-09] MEDS: Z GUARD REMEDY 4 OZ OINT TP SCH ×2 (10:09→20:39)
[2018-02-09 12:00] VITALS: BP 144/69
[2018-02-09] MEDS: MICAFUNGIN SODIUM IV SCH (13:28)
[2018-02-09] MEDS: NS 0.9% IV SCH (13:28)
--- NOTE | 2018-02-09 14:04 | NUR ---
SHRAVAN RN NOTE: PATIENT WAS CURRENTLY RECEIVING HEMODIALYSIS TODAY AND HYDRALAZINE WAS HELD. DAUGHTERS PRESENT AT THE BEDSIDE.
[2018-02-09] MEDS: ENSURE ENLIVE CHOC 237 ML CAN PO SCH ×2 (14:30→17:00)
--- NOTE | 2018-02-09 14:35 | NUR ---
SHRAVAN RN NOTE: INFORMED DR. GRAVES, RELIGION PROFESSOR RE: THE PATIENT'S AMIODARONE DRIP. MD WAS INFORMED THAT HE WAS STILL NOTED A.FIB UNCONTROLLED AFTER THE AMIODARONE DRIP. MD WAS INFORMED THAT THE PATIENT'S BLOOD PRESSURE WAS ALSO UNCONTROLLED. AND WAS REFUSING PO MEDICATIONS. PER MD, CONTINUE WITH THE AMIODARONE DRIP 0.5MG/MIN IV. ORDER, NOTED AND CARRIED OUT. DAUGHTER SRINI AT THE BEDSIDE WAS MADE AWARE.
[2018-02-09] MEDS ORDERED: AMIODARONE 900 MG in IV D5W 482 ML IV PRN (15:00)
[2018-02-09 16:00] VITALS: BP 174/89
[2018-02-09] MEDS: hydrALAZINE HCL IV 20 MG VIAL IV PRN (16:14)
[2018-02-09] MEDS ORDERED: VANCOMYCIN 1 GM in IV NS 0.9% 250 ML IV ONE (17:00)
[2018-02-09] MEDS: METOPROLOL TARTRATE INJ 5 MG/5 ML AMPUL IVP SCH ×2 (18:46→22:33)
--- NOTE | 2018-02-09 19:15 | NUR ---
TD/RN INITIAL NOTES RECEIVED PT IN BED, ALERT, APPEARS TO BE CONFUSED. AFIB HR ON BELLOW 105S. ON 2L O2 VIA NC, TOLERATING WELL. NO SOB NOTED. WITH SOFT WRIST BILATERAL RESTRAINT FOR SAFETY. WITH ONGOING AMIO DRIP AT 0.5MG/HR INFUSING WELL ON KOBI MIDLINE. WITH ONGOING IV VANCO ON RFA G20 LINE. HOB ELEVATED. SAFETY MEASURES IN PLACED. CALL LIGHT WITHIN EASY REACH. WILL CONT TO [id number]
--- NOTE | 2018-02-09 19:30 | NUR ---
SHRAVAN RN NOTE: REPORT GIVEN TO PM SHIFT NURSE FOR CONTINUITY OF CARE. PATIENT WAS ABLE TO VOID X3 TIMES AND 1 BM. PATIENT REFUSED TO EAT HIS MEALS FOR THE DAY EVEN THE ENSURE FOR NOURISHMENT. DAUGHTERS AND ARAM FOSTER WAS AWARE. HD WAS DONE TODAY AND 2L OUTPUT.
[2018-02-09 20:00] VITALS: BP 155/79
[2018-02-09] MEDS: ACYCLOVIR IV 0.75 GM in IV D5W 250 ML IV SCH (20:09)
[2018-02-10] VITALS (7 sets, daily range): BP systolic 120–190; BP diastolic 51–90
[2018-02-10] MEDS: hydrALAZINE HCL IV 20 MG VIAL IV PRN (00:27)
--- NOTE | 2018-02-10 00:52 | NUR ---
RN NOTES RECHECKED UO=778/68 AFTER HYRDRALAZINE IVP. PT DENIES ANY PAIN. WILL CONT TO MONITOR
[2018-02-10] MEDS: MEROPENEM 500 MG in IV NS 0.9% 100 ML IV SCH ×2 (01:38→14:21)
[2018-02-10] MEDS: IPRATROPIUM NEB FS 0.5 MG/2.5 ML AMPUL.NEB NEB SCH ×6 (03:30→22:52)
[2018-02-10] MEDS: METOPROLOL TARTRATE INJ 5 MG/5 ML AMPUL IVP SCH ×4 (05:07→22:56)
[2018-02-10] MEDS: GANCICLOVIR LEFTEYE SCH ×5 (06:44→20:45)
--- NOTE | 2018-02-10 06:55 | NUR ---
RN NOTES PT REMAINED IN STABLE CONDITION. NO ACUTE CHANGES THROUGHOUT SHIFT. ALL NEEDS ANTICIPATED. SAFETY MEASURES OBSERVED AT ALL TIMES. ENDORSED TO PM SHIFT RN FOR ISAMAR
[2018-02-10 07:17] LABS: BASOPHILS # (AUTO) 0.1 /CMM (0.0-0.2); BASOPHILS % (AUTO) 0.9 % (0.0-2.0); EOSINOPHILS % (AUTO) 0.3 % (0.0-6.0); HEMATOCRIT 27 % (39-51); HEMOGLOBIN 9.1 g/dL (13.5-17.5); LYMPHOCYTES # (AUTO) 0.3 /CMM (0.8-4.8); LYMPHOCYTES % (AUTO) 3.2 % (20.0-44.0); MEAN CORPUSCULAR HGB CONC 34 g/dl (31.0-36.0); MEAN CORPUSCULAR VOLUME 97 fL (80-96); MONOCYTES % (AUTO) 10.6 % (2.0-12.0); NEUTROPHILS # (AUTO) 8.3 /CMM (1.8-8.9); PLATELET COUNT (AUTO) 273 /CMM (150-450); RED BLOOD CELL COUNT(AUTO) 2.78 MIL/uL (4.5-6.0); WHITE BLOOD COUNT (AUTO) 9.8 K/uL (4.3-11.0)
--- NOTE | 2018-02-10 07:30 | NUR ---
SHRAVAN RN NOTE RECEIVED PATIENT IN AO/O X1, PATIENT SOFT WRIST RESTRAINT REMOVED FOR BREAKFAST TIME TO ENCOURAGE EATING, RN AT BEDSIDE MONITORING BEHAVIOR. AT THIS TIME ON DIRECTOR PRIVATE MUSIC THERAPY AGENCY A. FIB HR 102. RESPIRATION EVEN AND UNLABORED ON RA. ON CONTACT ISOLATION FOR OCULAR (L EYE) ZOSTER. NO BEHAVIORAL ISSUES AT THIS TIME. ON AMIODARONE DRIP 0.5MG/MIN. (R) UA MIDLINE AND (R) FOREARM NOTED PATENT AND INTACT. PATIENT'S DAUGHTER SRINI CALLED AND MADE AWARE OF THE PATIENT'S CONDITION. HOB ELEVATED. CALL LIGHT WITHIN REACH. BED ALARMED AND LOCKED AT ALL TIMES. NEEDS ANTICIPATED.
[2018-02-10 07:45] LABS: CALCIUM, SERUM 7.4 mg/dL (8.5-10.1); CARBON DIOXIDE 25 mmol/L (21-32); CHLORIDE 99 mmol/L (98-107); CREATININE 4.9 mg/dL (0.6-1.3); GLUCOSE 181 mg/dL (74-106); POTASSIUM 3.3 mmol/L (3.5-5.1); SODIUM SERUM 136 mmol/L (136-145); UREA NITROGEN, BLOOD 48 mg/dL (7-18)
[2018-02-10] MEDS: ENSURE ENLIVE CHOC 237 ML CAN PO SCH ×3 (08:15→17:00)
[2018-02-10] MEDS: DILTIAZEM HCL CD 120 MG PO SCH (08:31)
[2018-02-10] MEDS: hydrALAZINE HCL 50 MG TABLET PO SCH ×3 (08:31→18:26)
[2018-02-10] MEDS: QUETIAPINE FUMARATE 25 MG TABLET PO SCH ×2 (08:31→20:43)
[2018-02-10] MEDS: ATORVASTATIN 40 MG TABLET PO SCH (08:31)
[2018-02-10] MEDS: CLOPIDOGREL BISULFATE 75 MG TABLET PO SCH (08:31)
[2018-02-10] MEDS: ASPIRIN 81 MG TAB.CHEW PO SCH (08:32)
[2018-02-10] MEDS: Z GUARD REMEDY 4 OZ OINT TP SCH ×2 (08:33→20:45)
[2018-02-10] MEDS: HEPARIN SODIUM, PORCINE 5000 UNITS/1 ML VIAL SQ SCH ×2 (09:00→20:44)
--- NOTE | 2018-02-10 10:52 | NUR ---
SHRAVAN RN NOTE MD IBANEZ, AND CRISTIAN Resendiz AT BEDSIDE. NOTIFIED OF HYPERTENSION, RECHECKED BP MANUALLY, 172/82, POST BP MEDS. PATIENT DROWSY, RD CONSULT WITH FAMILY (SRINI) DONE. NOTIFIED RD THAT PATIENT WASNT EATING AND REFUSING MEALS.
--- NOTE | 2018-02-10 11:33 | NUR ---
SHRAVAN RN NOTE DUPLEX REVEALS RIGHT ARM IS POSITIVE FOR DVT. NOTIFIED .
[2018-02-10] MEDS ORDERED: DILTIAZEM HCL CD 120 MG PO ONE (11:46)
[2018-02-10] MEDS: NS 0.9% IV SCH (12:37)
[2018-02-10] MEDS: MICAFUNGIN SODIUM IV SCH (12:37)
[2018-02-10] MEDS: AMIODARONE HCL 200 MG TABLET PO SCH ×2 (12:37→18:26)
--- NOTE | 2018-02-10 19:15 | NUR ---
SHRAVAN RN NOTE PATIENT TOLERATED DAY, NO ACUTE CHANGES NO S/S OF DISTRESS OR PAIN. REPORT GIVEN TO NIGHT RN FOR ISAMAR. PATIENT IS STILL CONFUSED IVLINES IN TACT PATIENT IS STILL AFIB HR 96. ALL NEEDS ATTENDED.
--- NOTE | 2018-02-10 19:30 | NUR ---
INITIAL NOTES RECEIVED THE PATIENT AWAKE ON BED, A/OX 1 ONLY, CONFUSED. ON ROOM AIR, NAD. CONTROLLED AFIB ON THE MONITOR, HR 80'S. PT IS ANURIC. LEFT ARM AV SHUNT NOTED WITH BRUIT AND THRILL. RIGHT FOREARM IV ACCESS IS LEAKING, WILL REMOVE. RIGHT UPPER ARM MIDLINE FLUSHED AND PATENT, NO S/S OF INFILTRATION/INFECTION, DRESSING CDI. BED LOW AND LOCKED, SIDERAILS UP, CALL LIGHT WITHIN REACH. WILL MONITOR
[2018-02-10] MEDS: ACYCLOVIR IV 0.75 GM in IV D5W 250 ML IV SCH (19:38)
--- NOTE | 2018-02-10 20:54 | NUR ---
RN NOTES HELD SCHEDULED HEPARIN SQ DUE TO POSITIVE OB STOOL
[2018-02-11] VITALS (7 sets, daily range): BP systolic 121–144; BP diastolic 58–83
--- NOTE | 2018-02-11 | NUR ---
RN NOTES PATIENT ON HOME CPAP
[2018-02-11] MEDS: MEROPENEM 500 MG in IV NS 0.9% 100 ML IV SCH ×2 (01:09→14:07)
[2018-02-11] MEDS: IPRATROPIUM NEB FS 0.5 MG/2.5 ML AMPUL.NEB NEB SCH ×6 (03:26→23:41)
[2018-02-11] MEDS: HYDROCODONE/APAP 5/325MG 1 EACH TABLET PO PRN (04:23)
[2018-02-11] MEDS: METOPROLOL TARTRATE INJ 5 MG/5 ML AMPUL IVP SCH (04:59)
[2018-02-11 06:42] LABS: BASOPHILS % (AUTO) 0.1 % (0.0-2.0); EOSINOPHILS % (AUTO) 0.4 % (0.0-6.0); HEMATOCRIT 28 % (39-51); HEMOGLOBIN 9.4 g/dL (13.5-17.5); LYMPHOCYTES # (AUTO) 0.3 /CMM (0.8-4.8); LYMPHOCYTES % (AUTO) 2.3 % (20.0-44.0); MEAN CORPUSCULAR HGB CONC 33 g/dl (31.0-36.0); MEAN CORPUSCULAR VOLUME 98 fL (80-96); MONOCYTES % (AUTO) 8.7 % (2.0-12.0); NEUTROPHILS # (AUTO) 9.9 /CMM (1.8-8.9); NEUTROPHILS % (AUTO) 88.5 % (43.0-81.0); PLATELET COUNT (AUTO) 283 /CMM (150-450); RED BLOOD CELL COUNT(AUTO) 2.88 MIL/uL (4.5-6.0); WHITE BLOOD COUNT (AUTO) 11.2 K/uL (4.3-11.0)
[2018-02-11] MEDS: GANCICLOVIR LEFTEYE SCH ×5 (06:44→21:55)
--- NOTE | 2018-02-11 07:00 | NUR ---
RN NOTES RECEIVED PATIENT ON BED, A/OX 1, CONFUSED. ON CPAP AT THIS TIME , NO SOB NOTED , ON TELE A.FIB ,HR IN 90'S , PT IS ANURIC. LEFT ARM AV SHUNT NOTED WITH POSITIVE , BRUIT AND THRILL. RIGHT UPPER ARM MIDLINE FLUSHED AND PATENT,SITE , CLEAN ,DRY AND INTACT, NO S/S OF INFILTRATION/INFECTION, BED LOCKED AND IN LOWEST POSITION, SR UP X3. CALL LIGHT WITHIN REACH. WILL MONITOR
[2018-02-11 07:14] LABS: CALCIUM, SERUM 7.8 mg/dL (8.5-10.1); CARBON DIOXIDE 19 mmol/L (21-32); CHLORIDE 101 mmol/L (98-107); CREATININE 6.2 mg/dL (0.6-1.3); GLUCOSE 121 mg/dL (74-106); POTASSIUM 3.4 mmol/L (3.5-5.1); SODIUM SERUM 136 mmol/L (136-145); UREA NITROGEN, BLOOD 60 mg/dL (7-18)
[2018-02-11] MEDS: ATORVASTATIN 40 MG TABLET PO SCH (08:10)
[2018-02-11] MEDS: ASPIRIN 81 MG TAB.CHEW PO SCH (08:10)
[2018-02-11] MEDS: AMIODARONE HCL 200 MG TABLET PO SCH ×3 (08:10→17:20)
[2018-02-11] MEDS: CLOPIDOGREL BISULFATE 75 MG TABLET PO SCH (08:11)
[2018-02-11] MEDS: hydrALAZINE HCL 50 MG TABLET PO SCH ×3 (08:11→17:19)
[2018-02-11] MEDS: DILTIAZEM HCL CD 240 MG PO SCH (08:11)
[2018-02-11] MEDS: QUETIAPINE FUMARATE 25 MG TABLET PO SCH (08:12)
[2018-02-11] MEDS: HEPARIN SODIUM, PORCINE 5000 UNITS/1 ML VIAL SQ SCH ×2 (08:14→21:52)
[2018-02-11] MEDS: Z GUARD REMEDY 4 OZ OINT TP SCH ×2 (08:16→21:50)
[2018-02-11] MEDS: ENSURE ENLIVE CHOC 237 ML CAN PO SCH ×3 (08:16→17:00)
[2018-02-11] MEDS ORDERED: predniSONE 20 MG TABLET PO ONE ×2 (09:00→15:30)
--- NOTE | 2018-02-11 12:00 | NUR ---
RN NOTES PT STABLE, SUPPORTIVE FAMILY AT THE BEDSIDE, BMX1 , CONTINUE TO MONITOR .
[2018-02-11] MEDS: MICAFUNGIN SODIUM IV SCH (12:13)
[2018-02-11] MEDS: NS 0.9% IV SCH (12:13)
[2018-02-11] MEDS: PANTOPRAZOLE 40 MG TABLET.DR PO SCH (15:37)
[2018-02-11] MEDS: QUETIAPINE FUMARATE 25 MG TABLET PO PRN (15:39)
[2018-02-11] MEDS: BLOOD SUGAR DIAGNOSTIC 1 EACH STRIP IN SCH ×2 (17:20→21:50)
--- NOTE | 2018-02-11 18:15 | NUR ---
RN NOTES PT STABLE ,AWAKE / CONFUSED, NO SIGNIFICANT CHANGES NOTED ON THIS SHIFT , WILL ENDOSE TO REGISTERED NURSE PRACTITIONER NURSE FOR CONTINUITY OF CARE .
--- NOTE | 2018-02-11 20:54 | NUR ---
RN INITIAL TD NOTES RECEIVED PATIENT ON BED, A/OX 1, CONFUSED. ON R/A AT THIS TIME , NO SOB NOTED , ON TELE A.FIB ,HR IN 90'S , PT IS ANURIC. LEFT ARM AV SHUNT NOTED WITH POSITIVE , BRUIT AND THRILL. RIGHT UPPER ARM MIDLINE FLUSHED AND PATENT,SITE , CLEAN ,DRY AND INTACT, NO S/S OF INFILTRATION/INFECTION, BED LOCKED AND IN LOWEST POSITION, SR UP X3. CALL LIGHT WITHIN REACH. WILL MONITOR
[2018-02-11] MEDS: ACYCLOVIR IV 0.75 GM in IV D5W 250 ML IV SCH (21:50)
[2018-02-12] MEDS: MEROPENEM 500 MG in IV NS 0.9% 100 ML IV SCH ×2 (03:26→14:15)
[2018-02-12] MEDS: IPRATROPIUM NEB FS 0.5 MG/2.5 ML AMPUL.NEB NEB SCH ×6 (04:11→22:50)
[2018-02-12 04:27] VITALS: BP 138/69
[2018-02-12 06:37] LABS: BASOPHILS % (AUTO) 0.1 % (0.0-2.0); HEMATOCRIT 25 % (39-51); HEMOGLOBIN 8.5 g/dL (13.5-17.5); LYMPHOCYTES # (AUTO) 0.2 /CMM (0.8-4.8); LYMPHOCYTES % (AUTO) 1.3 % (20.0-44.0); MEAN CORPUSCULAR HGB CONC 34 g/dl (31.0-36.0); MEAN CORPUSCULAR VOLUME 97 fL (80-96); MONOCYTES # (AUTO) 0.4 /CMM (0.1-1.30); MONOCYTES % (AUTO) 3.2 % (2.0-12.0); NEUTROPHILS # (AUTO) 11.8 /CMM (1.8-8.9); NEUTROPHILS % (AUTO) 95.4 % (43.0-81.0); PLATELET COUNT (AUTO) 301 /CMM (150-450); WHITE BLOOD COUNT (AUTO) 12.4 K/uL (4.3-11.0)
[2018-02-12 06:54] LABS: ALANINE AMINOTRANSFERASE 17 U/L (12-78); ALBUMIN 2.3 g/dL (3.4-5.0); ALKALINE PHOSPHATASE 43 U/L (46-116); ASPARTATE AMINOTRANSFERASE 19 U/L (15-37); BILIRUBIN,TOTAL 0.4 mg/dL (0.2-1.0); CALCIUM, SERUM 8.2 mg/dL (8.5-10.1); CARBON DIOXIDE 26 mmol/L (21-32); CHLORIDE 104 mmol/L (98-107); CREATININE 5.5 mg/dL (0.6-1.3); GLUCOSE 140 mg/dL (74-106); MAGNESIUM 2.1 mg/dL (1.8-2.4); PHOSPHORUS 4.7 mg/dL (2.5-4.9); POTASSIUM 3.8 mmol/L (3.5-5.1); SODIUM SERUM 140 mmol/L (136-145); TOTAL PROTEIN, SERUM 5.8 g/dL (6.4-8.2); UREA NITROGEN, BLOOD 50 mg/dL (7-18)
--- NOTE | 2018-02-12 07:10 | NUR ---
RN CLOSING TD NOTES ENDORSED PATIENT ON BED, A/OX 1, CONFUSED. ON R/A AT THIS TIME , NO SOB NOTED , ON TELE A.FIB ,HR IN 92'S , PT IS ANURIC. LEFT ARM AV SHUNT NOTED WITH POSITIVE , BRUIT AND THRILL. RIGHT UPPER ARM MIDLINE FLUSHED AND PATENT,SITE , CLEAN ,DRY AND INTACT, NO S/S OF INFILTRATION/INFECTION, BED LOCKED AND IN LOWEST POSITION, SR UP X3. CALL LIGHT WITHIN REACH. WILL MONITOR
--- NOTE | 2018-02-12 07:16 | NUR ---
MS RN OPENING NOTES RECEIVED PT FROM NIGHTSHIFT RN IN STABLE CONDITION. PT IS A/O X2. NO SOB OR ACUTE SIGNS OF DISTRESS NOTED. BREATHING IS EVEN AND UNLABORED. PT ON RA AND SATING WELL. HE DENIES ANY PAIN AT THIS TIME. RIGHT UPPER ARM MIDLINE NOTED TO BE PATENT AND INTACT. NO REDNESS OR SIGNS OF INFILTRATION NOTED. BED IN LOW LOCKED POSITION, SIDE RAILS UP X3, CALL LIGHT WITHIN REACH, BED ALARM ON. ISOLATION PRECAUTIONS MAINTAINED. WILL CONTINUE TO MONITOR
[2018-02-12 08:00] VITALS: BP 148/65
[2018-02-12 08:08] LABS: *WEST NILE VIRUS IgG, CSF Negative (Negative)
[2018-02-12] MEDS: CLOPIDOGREL BISULFATE 75 MG TABLET PO SCH (08:12)
[2018-02-12] MEDS: Z GUARD REMEDY 4 OZ OINT TP SCH ×2 (08:12→21:06)
[2018-02-12] MEDS: PANTOPRAZOLE 40 MG TABLET.DR PO SCH (08:12)
[2018-02-12] MEDS: ATORVASTATIN 40 MG TABLET PO SCH (08:12)
[2018-02-12] MEDS: HEPARIN SODIUM, PORCINE 5000 UNITS/1 ML VIAL SQ SCH ×2 (08:17→21:00)
[2018-02-12] MEDS: GANCICLOVIR LEFTEYE SCH ×5 (08:19→21:06)
[2018-02-12] MEDS: ENSURE ENLIVE CHOC 237 ML CAN PO SCH ×3 (08:19→16:27)
[2018-02-12] MEDS: BLOOD SUGAR DIAGNOSTIC 1 EACH STRIP IN SCH ×4 (08:20→21:10)
[2018-02-12] MEDS: AMIODARONE HCL 200 MG TABLET PO SCH ×3 (08:32→16:27)
[2018-02-12] MEDS: hydrALAZINE HCL 50 MG TABLET PO SCH ×3 (08:32→16:27)
[2018-02-12] MEDS: DILTIAZEM HCL CD 240 MG PO SCH (08:32)
[2018-02-12] MEDS: ASPIRIN 81 MG TAB.CHEW PO SCH (08:34)
[2018-02-12] MEDS ORDERED: predniSONE 20 MG TABLET PO ONE ×2 (09:00→15:30)
--- NOTE | 2018-02-12 09:33 | NUR ---
MS RN NOTES: 0900 BP MEDS AM BP MEDICATIONS NOT GIVEN PT IS SCHEDULED FOR HD
--- NOTE | 2018-02-12 10:53 | NUR ---
MS RN NOTES: [facility] F/U DR. MOMIN AT BEDSIDE. MD ASKED ABOUT PT'S [facility] RESULTS AND WAS INFORMED THAT IT WAS CANCELLED A FEW DAYS PRIOR. VERBAL ORDERS GIVEN BY TO REORDER LAB WORK. ORDER IMPUTED AND LAB NOTIFIED
[2018-02-12 11:07] LABS: *WEST NILE VIRUS IgM, CSF Negative (Negative)
[2018-02-12] MEDS: MICAFUNGIN SODIUM IV SCH (12:11)
[2018-02-12] MEDS: NS 0.9% IV SCH (12:11)
--- NOTE | 2018-02-12 13:44 | NUR ---
MS LOVE NOTES: STOOL UPDATE MADE AWARE THAT PT HAD A BLACK PASTY BP. ALSO REMINDED OF PT'S POSITIVE OB STOOL ALONG WITH CURRENT H/H. PER "I WILL CONTACT GI TO SEE HIM" Addendum: 02/12/18 at 1828 by PERLA BEE RN BM NOT BP
--- NOTE | 2018-02-12 14:20 | NUR ---
MS RN NOTES: EGD CONSENTS PT REFUSING EGD AT THIS TIME. PER PT "I'D RATHER HAVE IT DONE WITH MY OWN GI DOCTOR. I DON'T WANT IT AT THIS TIME." RISKS AND BENEFITS DISCUSSED WITH PT AND PT'S DAUGHTER. UNABLE TO OBTAIN CONSENTS AT THIS TIME.
--- NOTE | 2018-02-12 14:43 | NUR ---
CRISTIAN(GI ORTHOTIC/PROSTHETIC PRACTITIONER) MADE AWARE THAT PT DOES NOT WANT TO PRECEDE WITH EGD
[2018-02-12 16:00] VITALS: BP 136/69
[2018-02-12] MEDS: PANTOPRAZOLE 40 MG VIAL IV SCH (16:25)
[2018-02-12] MEDS: VANCOMYCIN 500 MG in IV D5W 100 ML IV PRN (16:27)
--- NOTE | 2018-02-12 17:01 | NUR ---
MS RN NOTES: VANCO ADMINISTRATION PT DID NOT RECEIVE PRN VANCO AFTER HD ON 02/11. PHARMACIST AWARE AND GAVE APPROVAL TO ADMINISTER A DOSE TODAY
[2018-02-12] MEDS: SUCRALFATE 1 G/10 ML UDC GT SCH ×2 (17:03→21:08)
--- NOTE | 2018-02-12 18:28 | NUR ---
MS RN CLOSING NOTES PT REMAINS STABLE. ALL NEEDS WERE MET DURING SHIFT AND ORDERS CARRIED OUT ACCORDINGLY. ALL DUE MEDS GIVEN. PRN CARE RENDERED. HE DENIES ANY PAIN AT THIS TIME. PT STATES THAT HE FEELS A BIT NAUSEOUS, BUT IS REFUSING ANTIEMETIC MEDICATIONS WHEN OFFERED. SAFETY MEASURES REMAIN IN PLACE. WILL ENDORSE TO NIGHTSHIFT RN FOR ISAMAR
--- NOTE | 2018-02-12 19:30 | NUR ---
MS/RN OPENING NOTES PT RECEIVED AWAKE, HOB ELEVATED. ON ROOM AIR, BREATHING EVEN AND UNLABORED. IN NO ACUTE DISTRESS. DENIES SOB, PAIN. PASSIVE. KOBI MIDLINE PATENT AND INTACT. LEFT ARM AV SHUNT WITH POSITIVE BRUIT/THRILL. BED IN LOW/LOCKED POSITION WITH CALL LIGHT IN REACH. BILATERAL UPPER SIDE RAILS IN PLACE AND BED ALARM ON FOR SAFETY. ISOLATION PRECAUTIONS IMPLEMENTED. WILL CONTINUE TO MONITOR
[2018-02-12 20:00] VITALS: BP 149/68
[2018-02-12] MEDS: ACYCLOVIR IV 0.75 GM in IV D5W 250 ML IV SCH (20:58)
--- NOTE | 2018-02-12 21:30 | NUR ---
MS/RN NOTES PT REFUSED SCHEDULED HEPARIN DESPITE EDUCATION OF RISKS/BENEFITS X3. PT ALSO REFUSING BREATHING TX AND CPAP AT THIS TIME DESPITE EDUCATION THAT DR. GAUTHIER REALLY ENCOURAGES USE DUE TO HIS SLEEP APNEA. PT STILL STRONGLY REFUSING AND GETTING AGITATED. WILL TRY AGAIN LATER.
--- NOTE | 2018-02-12 22:52 | NUR ---
RT NOTE PT REFUSED NOC CPAP PER MD ORDERS. NO RESP DISTRESS OR SOB NOTED AT THIS TIME. LOVE RICKETTS NOTIFIED AND AWARE.
[2018-02-13] MEDS: MEROPENEM 500 MG in IV NS 0.9% 100 ML IV SCH ×2 (01:29→14:35)
--- NOTE | 2018-02-13 01:30 | NUR ---
MS/RN NOTES PT STILL REFUSING CPAP DESPITE MULTIPLE EDUCATION ATTEMPTS. FURNITURE REMOVALIST'S ASSISTANT AWARE
[2018-02-13] MEDS: IPRATROPIUM NEB FS 0.5 MG/2.5 ML AMPUL.NEB NEB SCH ×6 (02:41→23:21)
[2018-02-13 04:00] VITALS: BP 171/78
[2018-02-13] MEDS: hydrALAZINE HCL 25 MG TABLET PO PRN ×3 (05:16→20:23)
--- NOTE | 2018-02-13 05:20 | NUR ---
MS/RN NOTES PT NOTED WITH ELEVATED BP 181/79, RECHECKED 171/78 ADMINISTERED PRN HYDRALAZINE ORDERED. Addendum: 02/13/18 at 0627 by JAMARCUS BANKS RN BP CHECKED POST HYDRALAZINE ADMINISTRATION= 152/62, HR 90
[2018-02-13] MEDS: GANCICLOVIR LEFTEYE SCH ×5 (06:14→20:37)
--- NOTE | 2018-02-13 07:09 | NUR ---
MS/RN CLOSING NOTES PT AWAKE, HOB ELEVATED IN BED, ASPIRATION PRECAUTIONS IMPLEMENTED. REMAINS ON ROOM AIR, BREATHING EVEN AND UNLABORED. DENIES SOB AND PAIN AT THIS TIME. KOBI MIDLINE PATENT AND INTACT. ORI AV SHUNT WITH BRUITT/THRILL. NO SIGNIFICANT CHANGES OVERNIGHT. REFUSED CPAP AND BREATHING TX DURING SHIFT DESPITE EDUCATION. BED IN LOW/LOCKED POSITION WITH CALL LIGHT IN REACH, BILATERAL UPPER SIDE RAILS IN PLACE. ENDORSED TO DAY SHIFT RN ISAMAR.
[2018-02-13 08:00] VITALS: BP 152/97
[2018-02-13] MEDS: ATORVASTATIN 40 MG TABLET PO SCH (08:33)
[2018-02-13] MEDS: DILTIAZEM HCL CD 240 MG PO SCH (08:33)
[2018-02-13] MEDS: SUCRALFATE 1 G/10 ML UDC GT SCH ×4 (08:34→21:28)
[2018-02-13] MEDS: PANTOPRAZOLE 40 MG VIAL IV SCH ×2 (08:34→16:16)
[2018-02-13] MEDS: AMIODARONE HCL 200 MG TABLET PO SCH ×3 (08:34→16:17)
[2018-02-13] MEDS: hydrALAZINE HCL 50 MG TABLET PO SCH ×3 (08:35→16:17)
[2018-02-13] MEDS: ENSURE ENLIVE CHOC 237 ML CAN PO SCH ×3 (08:36→16:17)
[2018-02-13] MEDS: HEPARIN SODIUM, PORCINE 5000 UNITS/1 ML VIAL SQ SCH ×2 (08:40→20:13)
[2018-02-13] MEDS: Z GUARD REMEDY 4 OZ OINT TP SCH ×2 (08:41→20:12)
--- NOTE | 2018-02-13 08:50 | NUR ---
MEDSUEDGARDO RN NOTE PATIENT REFUSED HEPARIN SQ. RISKS EXPLAINED. WILL NOTIFY BRENT FIGUEROA.
--- NOTE | 2018-02-13 08:51 | NUR ---
PATTIE RN NOTE UNABLE TO CHECK BLOOD SUGAR BECAUSE THERE ARE NO TEST STRIPS IN THE UNIT. CONTACTED [employer] WHO SAID THAT THEY ARE WAITING FOR ANOTHER STAFF MEMBER TO DELIVER TEST STRIPS BUT UNSURE WHEN THEY ARE AVAILABLE. WILL CHECK BLOOD SUGAR SOON TEST STRIPS ARE AVAILABLE.
[2018-02-13] MEDS ORDERED: predniSONE 20 MG TABLET PO ONE (09:00)
[2018-02-13 09:34] LABS: BASOPHILS % (AUTO) 0.1 % (0.0-2.0); EOSINOPHILS % (AUTO) 0.1 % (0.0-6.0); HEMATOCRIT 25 % (39-51); HEMOGLOBIN 8.2 g/dL (13.5-17.5); LYMPHOCYTES # (AUTO) 0.5 /CMM (0.8-4.8); LYMPHOCYTES % (AUTO) 2.8 % (20.0-44.0); MEAN CORPUSCULAR HGB CONC 33 g/dl (31.0-36.0); MEAN CORPUSCULAR VOLUME 98 fL (80-96); MONOCYTES # (AUTO) 1.7 /CMM (0.1-1.30); MONOCYTES % (AUTO) 9.9 % (2.0-12.0); NEUTROPHILS % (AUTO) 87.1 % (43.0-81.0); PLATELET COUNT (AUTO) 366 /CMM (150-450); RED BLOOD CELL COUNT(AUTO) 2.51 MIL/uL (4.5-6.0); WHITE BLOOD COUNT (AUTO) 17.2 K/uL (4.3-11.0)
[2018-02-13 09:35] LABS: CALCIUM, SERUM 8.2 mg/dL (8.5-10.1); CARBON DIOXIDE 23 mmol/L (21-32); CHLORIDE 103 mmol/L (98-107); CREATININE 6.8 mg/dL (0.6-1.3); GLUCOSE 107 mg/dL (74-106); POTASSIUM 3.9 mmol/L (3.5-5.1); SODIUM SERUM 140 mmol/L (136-145); UREA NITROGEN, BLOOD 63 mg/dL (7-18)
[2018-02-13] MEDS: BLOOD SUGAR DIAGNOSTIC 1 EACH STRIP IN SCH ×4 (11:37→21:24)
[2018-02-13] MEDS: MICAFUNGIN SODIUM IV SCH (13:20)
[2018-02-13] MEDS: NS 0.9% IV SCH (13:20)
[2018-02-13 16:00] VITALS: BP 141/62
[2018-02-13] MEDS: VANCOMYCIN 500 MG in IV D5W 100 ML IV PRN (16:15)
[2018-02-13 17:22] LABS: *ANA ANTI-CENTROMERE B AB <0.2 AI (0.0-0.9); *ANA ANTI-DNA(DS) AB, QN <1 IU/mL (0-9); *ANA ANTI-JO-1 <0.2 AI (0.0-0.9); *ANA ANTICHROMATIN ANTIBODY <0.2 AI (0.0-0.9); *ANA RNP ANTIBODIES 1.9 AI (0.0-0.9); *ANA SJOGREN'S ANTI-SS-A <0.2 AI (0.0-0.9); *ANA SJOGREN'S ANTI-SS-B <0.2 AI (0.0-0.9); *ANAANTI-SCLERODERMA-70 AB <0.2 AI (0.0-0.9); *ANASMITH AB <0.2 AI (0.0-0.9)
--- NOTE | 2018-02-13 19:21 | NUR ---
MEDSURG RN NOTE PATIENT RESTING IN BED IN STABLE CONDITION, NO RESPIRATORY DISTRESS NOTED, ON ROOM AIR. MIDLINE INTACT TKO, DRESSING CHANGED. SCD'S ON BILATERAL LOWER EXTREMITIES. PATIENT ABLE TO MAKE NEEDS KNOWN. FAMILY AT BEDSIDE PERIODICALLY DURING THE DAY. SIDE RAILS UP, BED IN LOW LOCKED POSITION, CALL LIGHT WITHIN REACH, ENDORSED TO DRY PLASTERER HELPER NURSE FOR CONTINUITY OF CARE.
[2018-02-13 19:59] VITALS: BP 168/64
[2018-02-13 20:00] VITALS: BP 168/64
[2018-02-13] MEDS: ACYCLOVIR IV 0.75 GM in IV D5W 250 ML IV SCH (20:12)
[2018-02-13] MEDS: hydrALAZINE HCL IV 20 MG VIAL IV PRN (20:24)
[2018-02-14] MEDS: IPRATROPIUM NEB FS 0.5 MG/2.5 ML AMPUL.NEB NEB SCH ×3 (03:38→11:25)
[2018-02-14 04:00] VITALS: BP 150/70
[2018-02-14 04:57] VITALS: BP 150/70
[2018-02-14] MEDS: GANCICLOVIR LEFTEYE SCH ×5 (06:28→21:00)
[2018-02-14 07:11] LABS: BASOPHILS % (AUTO) 0.1 % (0.0-2.0); HEMATOCRIT 24 % (39-51); HEMOGLOBIN 7.9 g/dL (13.5-17.5); LYMPHOCYTES # (AUTO) 0.5 /CMM (0.8-4.8); LYMPHOCYTES % (AUTO) 3.2 % (20.0-44.0); MEAN CORPUSCULAR HGB CONC 33 g/dl (31.0-36.0); MEAN CORPUSCULAR VOLUME 98 fL (80-96); MONOCYTES # (AUTO) 1.6 /CMM (0.1-1.30); MONOCYTES % (AUTO) 10.6 % (2.0-12.0); NEUTROPHILS # (AUTO) 13.1 /CMM (1.8-8.9); NEUTROPHILS % (AUTO) 86.1 % (43.0-81.0); PLATELET COUNT (AUTO) 333 /CMM (150-450); RED BLOOD CELL COUNT(AUTO) 2.46 MIL/uL (4.5-6.0); WHITE BLOOD COUNT (AUTO) 15.2 K/uL (4.3-11.0)
[2018-02-14 07:21] LABS: CALCIUM, SERUM 8.1 mg/dL (8.5-10.1); CARBON DIOXIDE 26 mmol/L (21-32); CHLORIDE 102 mmol/L (98-107); CREATININE 6.3 mg/dL (0.6-1.3); GLUCOSE 113 mg/dL (74-106); POTASSIUM 3.6 mmol/L (3.5-5.1); SODIUM SERUM 140 mmol/L (136-145); UREA NITROGEN, BLOOD 55 mg/dL (7-18)
--- NOTE | 2018-02-14 07:24 | NUR ---
RN OPENING NOTES RECEIVED PATIENT AWAKE, HOB ELEVATED. ON ROOM AIR, BREATHING EVEN AND UNLABORED. NO ACUTE DISTRESS, NO SOB, DENIED PAIN. KOBI MIDLINE PATENT AND INTACT. LEFT ARM AV SHUNT WITH POSITIVE BRUIT/THRILL. BED IN LOW/LOCKED POSITION WITH CALL LIGHT IN REACH. BILATERAL UPPER SIDE RAILS IN PLACE AND BED ALARM ON FOR SAFETY. ISOLATION PRECAUTIONS IMPLEMENTED. WILL CONTINUE TO MONITOR ACCORDINGLY
[2018-02-14] MEDS: SUCRALFATE 1 G/10 ML UDC GT SCH ×4 (07:30→21:00)
[2018-02-14 08:00] VITALS: BP 151/65
[2018-02-14] MEDS: ENSURE ENLIVE CHOC 237 ML CAN PO SCH ×3 (08:00→17:00)
[2018-02-14] MEDS: PANTOPRAZOLE 40 MG VIAL IV SCH ×2 (08:45→16:57)
[2018-02-14] MEDS: BLOOD SUGAR DIAGNOSTIC 1 EACH STRIP IN SCH ×4 (08:53→21:30)
[2018-02-14] MEDS: HEPARIN SODIUM, PORCINE 5000 UNITS/1 ML VIAL SQ SCH ×2 (09:00→20:57)
[2018-02-14] MEDS: DILTIAZEM HCL CD 240 MG PO SCH (09:00)
[2018-02-14] MEDS: hydrALAZINE HCL 50 MG TABLET PO SCH ×3 (09:00→16:54)
[2018-02-14] MEDS: Z GUARD REMEDY 4 OZ OINT TP SCH ×2 (09:00→21:00)
[2018-02-14] MEDS ORDERED: predniSONE 20 MG TABLET PO ONE (09:00)
[2018-02-14] MEDS: ATORVASTATIN 40 MG TABLET PO SCH (09:00)
[2018-02-14] MEDS ORDERED: CEFEPIME 1 GM in IV D5W 50 ML IV ONE (09:00)
[2018-02-14] MEDS: AMIODARONE HCL 200 MG TABLET PO SCH ×3 (09:00→16:55)
--- NOTE | 2018-02-14 10:00 | NUR ---
RN NOTES PATIENT REFUSED AM MEDICATIONS. EXPLAIN RISK BUT STILL REFUSED. CRISTIAN CUEVAS MADE AWARE.
--- NOTE | 2018-02-14 10:18 | NUR ---
RN NOTES NOTICE REDNESS ON SACRUM UPON CLEANING THE PATIENT. PATIENT REFUSED SKIN PHOTOS AT THIS TIME. PER PATIENT "LET ME REST".
[2018-02-14] MEDS: MICAFUNGIN SODIUM IV SCH (12:06)
[2018-02-14] MEDS: NS 0.9% IV SCH (12:06)
[2018-02-14] MEDS ORDERED: IPRATROPIUM NEB FS 0.5 MG/2.5 ML AMPUL.NEB NEB PRN (13:00)
[2018-02-14 16:00] VITALS: BP 148/70
--- NOTE | 2018-02-14 18:21 | NUR ---
RN NOTES REFUSED DINNER. ALSO OFFERED FOOD THAT FAMILY BROUGHT SEVERAL TIMES BUT STILL REFUSED TO EAT. EXPLAINED BENEFITS OF NUTRITION BUT STILL REFUSED.
--- NOTE | 2018-02-14 19:09 | NUR ---
RN CLOSING NOTES PATIENT IN STABLE CONDITION. ALL NEEDS ATTENDED AND PROVIDED. ALL DUE MEDICATIONS ADMINISTERED ORDERED. KEPT PATIENT SAFE AND COMFORTABLE. BED IN LOW/LOCKED POSITION, SIDERAILS UP, CALL LIGHT IN REACH. ENDORSED TO NIGHT RN FOR ISAMAR
[2018-02-14] MEDS: ACYCLOVIR IV 0.75 GM in IV D5W 250 ML IV SCH (19:39)
[2018-02-14 20:00] VITALS: BP_SYST 162; BP_SYST 99; BP_DIAS 64
[2018-02-15 04:00] VITALS: BP 139/82
--- NOTE | 2018-02-15 05:55 | NUR ---
rn notes Patient refused taking skin photo. explained risks and benefits and offered 3 x and still refused.
--- NOTE | 2018-02-15 06:10 | NUR ---
RN NOTES PATIENT REFUSED BLOOD DRAW. EXPLAINED RISKS AND BENEFITS AND OFFERED 3 X AND STILL REFUSED
[2018-02-15] MEDS: GANCICLOVIR LEFTEYE SCH ×5 (06:49→22:09)
--- NOTE | 2018-02-15 07:10 | NUR ---
MS RN OPENING NOTES RECEIVED PT LYING ON BED.ALERT/ORIENTED X2-3.ON ROOM AIR,SATURATING WELL.NO SOB AND ACUTE DISTRESS NOTED.WOUND CARE AND WOUND PICTURE REFUSED BY THE PT PER PUG MACHINE OPERATOR RN.LEFT & RIGHT ARM SHUNT NOTED AND MIDLINE IS ON RIGHT UPPER ARM,SITE IS CLEAN,DRY AND INTACT,NO INFILTRATION NOTED.SAFETY IS MAINTAINED AT ALL TIMES.BED IS IN LOW POSITION AND LOCKED.CALL LIGHT IS WITH IN REACH.CPAP IS AT BEDSIDE.WILL CONTINUE TO MONITOR THE PT CLOSELY.
[2018-02-15] MEDS ORDERED: ANESTHESIA TRAY IN PYXIS 1 EA TRAY MC ONE (07:21)
[2018-02-15 07:26] VITALS: BP 138/68
--- NOTE | 2018-02-15 07:26 | NUR ---
MS RN NOTES PT PICKED UP BY OR STAFFS TO DO EGD.ALERT/ORIENTED X2-3.IV LINE IS ON PLACE.VITAL SIGNS ARE CHECKED AND IT IS WNL.ON ROOM AIR,NO SOB AND ACUTE DISTRESS NOTED.SKIN ASSESSMENT IS DONE.ALL THE CONSENTS AND CHECKLIST ARE SIGNED.
[2018-02-15] MEDS: BLOOD SUGAR DIAGNOSTIC 1 EACH STRIP IN SCH ×4 (07:30→22:13)
[2018-02-15] MEDS: SUCRALFATE 1 G/10 ML UDC GT SCH ×4 (07:30→22:00)
[2018-02-15] MEDS ORDERED: ETOMIDATE 2 MG/ML VIAL ONE (07:40)
[2018-02-15 08:00] VITALS: BP 138/68
[2018-02-15] MEDS: ENSURE ENLIVE CHOC 237 ML CAN PO SCH ×3 (08:00→17:00)
[2018-02-15 08:30] VITALS: BP 149/80
--- NOTE | 2018-02-15 08:30 | NUR ---
MS RN NOTES PT CAME BACK FROM PROCEDURE.ALERT/ORIENTED X2.VITAL SIGNS ARE CHECKED AND RECORDED.NO COMPLICATIONS NOTED.
[2018-02-15] MEDS ORDERED: CEFEPIME 0.5 GM in IV D5W 50 ML IV SCH (09:00)
[2018-02-15] MEDS ORDERED: predniSONE 20 MG TABLET PO ONE (09:00)
[2018-02-15] MEDS: PANTOPRAZOLE 40 MG VIAL IV SCH ×2 (10:17→17:57)
[2018-02-15] MEDS: DILTIAZEM HCL CD 240 MG PO SCH (10:17)
[2018-02-15] MEDS: ATORVASTATIN 40 MG TABLET PO SCH (10:17)
[2018-02-15] MEDS: AMIODARONE HCL 200 MG TABLET PO SCH ×3 (10:17→17:00)
[2018-02-15] MEDS: hydrALAZINE HCL 50 MG TABLET PO SCH ×3 (10:20→17:00)
[2018-02-15] MEDS: Z GUARD REMEDY 4 OZ OINT TP SCH ×2 (11:44→22:10)
[2018-02-15] MEDS: NS 0.9% IV SCH (12:01)
[2018-02-15] MEDS: MICAFUNGIN SODIUM IV SCH (12:01)
[2018-02-15] MEDS ORDERED: EPOETIN ALFA (10,000 UNIT) 10,000 UNIT/ML VIAL SQ ONE (13:00)
[2018-02-15 13:18] LABS: EOSINOPHILS % (AUTO) 0.1 % (0.0-6.0); HEMATOCRIT 22 % (39-51); HEMOGLOBIN 7.5 g/dL (13.5-17.5); LYMPHOCYTES # (AUTO) 0.4 /CMM (0.8-4.8); LYMPHOCYTES % (AUTO) 2.9 % (20.0-44.0); MEAN CORPUSCULAR HGB CONC 33 g/dl (31.0-36.0); MEAN CORPUSCULAR VOLUME 99 fL (80-96); MONOCYTES # (AUTO) 1.1 /CMM (0.1-1.30); NEUTROPHILS # (AUTO) 12.3 /CMM (1.8-8.9); PLATELET COUNT (AUTO) 268 /CMM (150-450); RED BLOOD CELL COUNT(AUTO) 2.26 MIL/uL (4.5-6.0); WHITE BLOOD COUNT (AUTO) 13.8 K/uL (4.3-11.0)
[2018-02-15 13:38] LABS: CALCIUM, SERUM 7.9 mg/dL (8.5-10.1); CARBON DIOXIDE 24 mmol/L (21-32); CHLORIDE 103 mmol/L (98-107); GLUCOSE 110 mg/dL (74-106); MAGNESIUM 2.1 mg/dL (1.8-2.4); PHOSPHORUS 5.1 mg/dL (2.5-4.9); POTASSIUM 3.8 mmol/L (3.5-5.1); SODIUM SERUM 140 mmol/L (136-145); UREA NITROGEN, BLOOD 74 mg/dL (7-18)
[2018-02-15 13:44] LABS: CREATININE 7.8 mg/dL (0.6-1.3)
[2018-02-15 16:00] VITALS: BP 144/73
--- NOTE | 2018-02-15 16:45 | NUR ---
MS RN NOTES NOTIFIED WITH SPECIAL EDUCATION RESOURCE ROOM TEACHER SANDRA ABOUT PT REFUSING TO FOOD AND MEDICATIONS,AWAITING FOR THE NEW ORDER.
--- NOTE | 2018-02-15 18:49 | NUR ---
MS RN CLOSING NOTES PT IS ON BED.DONE WITH EGD AND WAITING FOR THE BIOPSY RESULT.NO SOB AND ACUTE DISTRESS NOTED.STILL WAITING FOR THE NEW ORDER FROM ARAM FLORES FOR REFUSING CHARACTER.ENDORSED TO UTILITY BAG ASSEMBLER RN FOR CONTINUITY OF CARE AND ABOUT REFUSAL BEHAVIOR.
--- NOTE | 2018-02-15 19:30 | NUR ---
rn note RECEIVED PT IN BED ANXIOUS AND AGITATED. CONSTANTLY YELLING OUT AND SCREAMING. BREATHING EVENLY. NO SOB. NAD . SKIN WARM AND DRY. BED LOW LOCKED. BED ALARM ON. CALL LIGHT WITHIN REACH. WILL CONT TO MONITOR,
[2018-02-15 20:00] VITALS: BP 159/75
[2018-02-15] MEDS: LORAZEPAM INJ 2 MG/ML VIAL IV PRN (20:13)
[2018-02-15] MEDS: CEFEPIME 1 GM in IV D5W 50 ML IV SCH (20:13)
--- NOTE | 2018-02-15 20:13 | NUR ---
ATIVAN GIVEN FOR ANXIETY AND AGITATION. WILL CONT TO MONITOR,
[2018-02-16 04:00] VITALS: BP 157/59
[2018-02-16 06:51] LABS: BASOPHILS % (AUTO) 0.2 % (0.0-2.0); EOSINOPHILS % (AUTO) 0.1 % (0.0-6.0); HEMATOCRIT 23 % (39-51); HEMOGLOBIN 7.5 g/dL (13.5-17.5); LYMPHOCYTES # (AUTO) 0.3 /CMM (0.8-4.8); LYMPHOCYTES % (AUTO) 1.2 % (20.0-44.0); MEAN CORPUSCULAR HGB CONC 33 g/dl (31.0-36.0); MEAN CORPUSCULAR VOLUME 98 fL (80-96); MONOCYTES # (AUTO) 1.4 /CMM (0.1-1.30); MONOCYTES % (AUTO) 6.1 % (2.0-12.0); NEUTROPHILS # (AUTO) 21.1 /CMM (1.8-8.9); NEUTROPHILS % (AUTO) 92.4 % (43.0-81.0); PLATELET COUNT (AUTO) 255 /CMM (150-450); RED BLOOD CELL COUNT(AUTO) 2.28 MIL/uL (4.5-6.0); WHITE BLOOD COUNT (AUTO) 22.8 K/uL (4.3-11.0)
--- NOTE | 2018-02-16 06:51 | NUR ---
PT IN BED RESTING COMFORTABLY. BREATHING EVENLY. NO SOB. NO ACUTE EVENT DURING THE NIGHT. BP REMAINED ON HIGH SIDE BUT STILL BELOW 160 SBP. NO S/S OR C/P PAIN OR DISCOMFORT . GOOD SKIN CARE AND BED BATH PROVIDED. CLEANED AND DRIED. GOOD ISOLATION PRECAUTION AND PROPER HAND WASHING OBSERVED. NEEDS ATTENDED. BED LOW LOCKED. CALL LIGHT WITHIN REACH. WILL CONT TO MONITOR AND WILL ENDORSE TO AM SHIFT FOR ISAMAR,
[2018-02-16] MEDS: GANCICLOVIR LEFTEYE SCH ×5 (07:11→21:11)
[2018-02-16 07:18] LABS: CALCIUM, SERUM 7.7 mg/dL (8.5-10.1); CARBON DIOXIDE 23 mmol/L (21-32); CHLORIDE 103 mmol/L (98-107); GLUCOSE 96 mg/dL (74-106); POTASSIUM 4.1 mmol/L (3.5-5.1); SODIUM SERUM 141 mmol/L (136-145)
[2018-02-16] MEDS: BLOOD SUGAR DIAGNOSTIC 1 EACH STRIP IN SCH ×4 (07:30→21:08)
[2018-02-16 07:41] LABS: UREA NITROGEN, BLOOD 87 mg/dL (7-18)
[2018-02-16 08:00] VITALS: BP_SYST 159; BP_DIAS 56; BP_DIAS 72
[2018-02-16] MEDS: hydrALAZINE HCL 50 MG TABLET PO SCH ×3 (09:00→17:52)
[2018-02-16] MEDS ORDERED: predniSONE 10 MG TABLET PO ONE (09:00)
[2018-02-16] MEDS: ATORVASTATIN 40 MG TABLET PO SCH (09:27)
[2018-02-16] MEDS: PANTOPRAZOLE 40 MG VIAL IV SCH ×2 (09:27→17:48)
[2018-02-16] MEDS: ENSURE ENLIVE CHOC 237 ML CAN PO SCH ×3 (09:28→17:54)
[2018-02-16] MEDS: SUCRALFATE 1 G/10 ML UDC GT SCH ×4 (09:32→21:09)
[2018-02-16] MEDS: AMIODARONE HCL 200 MG TABLET PO SCH ×3 (09:34→17:52)
[2018-02-16] MEDS: DILTIAZEM HCL CD 240 MG PO SCH (09:35)
[2018-02-16] MEDS ORDERED: VANCOMYCIN 500 MG in IV D5W 100 ML IV PRN (12:00)
[2018-02-16] MEDS ORDERED: EPOETIN ALFA (10,000 UNIT) 10,000 UNIT/ML VIAL IV ONE (12:30)
[2018-02-16] MEDS ORDERED: NEPRO 1,000 ML BOTTLE GT PRN (14:30)
[2018-02-16 16:00] VITALS: BP 164/74
[2018-02-16] MEDS: MICAFUNGIN SODIUM 100 MG in IV NS 0.9% 100 ML IV SCH (16:15)
[2018-02-16] MEDS: Z GUARD REMEDY 4 OZ OINT TP SCH ×2 (16:18→21:10)
[2018-02-16] MEDS ORDERED: FEE PK DOSING 1 MIN EA MC ONE (16:58)
[2018-02-16] MEDS ORDERED: VANCOMYCIN 1 GM in IV D5W 250 ML IV ONE (18:00)
--- NOTE | 2018-02-16 18:00 | NUR ---
MS RN ON BED, NO DISTRESS NOTED,ALL NEEDS ATTENDED.
[2018-02-16 20:00] VITALS: BP 156/93
[2018-02-16] MEDS: CEFEPIME 1 GM in IV D5W 50 ML IV SCH (21:17)
[2018-02-17 04:00] VITALS: BP 131/97
[2018-02-17] MEDS: GANCICLOVIR LEFTEYE SCH ×5 (06:05→21:06)
[2018-02-17 07:09] LABS: EOSINOPHILS % (AUTO) 0.1 % (0.0-6.0); HEMATOCRIT 24 % (39-51); HEMOGLOBIN 7.9 g/dL (13.5-17.5); LYMPHOCYTES # (AUTO) 0.4 /CMM (0.8-4.8); MEAN CORPUSCULAR HGB CONC 33 g/dl (31.0-36.0); MEAN CORPUSCULAR VOLUME 98 fL (80-96); MONOCYTES # (AUTO) 1.3 /CMM (0.1-1.30); MONOCYTES % (AUTO) 6.8 % (2.0-12.0); NEUTROPHILS # (AUTO) 17.6 /CMM (1.8-8.9); NEUTROPHILS % (AUTO) 91.1 % (43.0-81.0); PLATELET COUNT (AUTO) 261 /CMM (150-450); RED BLOOD CELL COUNT(AUTO) 2.39 MIL/uL (4.5-6.0); WHITE BLOOD COUNT (AUTO) 19.3 K/uL (4.3-11.0)
[2018-02-17 07:17] LABS: CALCIUM, SERUM 7.1 mg/dL (8.5-10.1); CARBON DIOXIDE 26 mmol/L (21-32); CHLORIDE 103 mmol/L (98-107); GLUCOSE 103 mg/dL (74-106); POTASSIUM 4.1 mmol/L (3.5-5.1); SODIUM SERUM 142 mmol/L (136-145); UREA NITROGEN, BLOOD 60 mg/dL (7-18)
--- NOTE | 2018-02-17 07:34 | NUR ---
MS RN OPENING NOTES RECEIVED PT LAYING IN BED WITH HOB SLIGHTLY ELEVATED. PT IS AWAKE, CONFUSED. RESPIRATIONS ARE EVEN AND UNLABORED, NOT IN ANY ACUTE DISTRESS NOTED. NO FACIAL GRIMACING OR MOANING NOTED. MIDLINE TO KOBI INTACT, NO INFILTRATION NOTED. DRESSING KEPT CLEAN AND DRY. SAFETY MEASURES ARE IN PLACE. INSTRUCTED PT TO USE CALL LIGHT WHEN ASSISTANCE IS NEEDED, CALL LIGHT IS LEFT WITHIN REACH. ISOLATION PRECAUTIONS PER PROTOCOL. WILL MONITOR THROUGHOUT SHIFT FOR CONTINUITY OF CARE.
[2018-02-17] MEDS: BLOOD SUGAR DIAGNOSTIC 1 EACH STRIP IN SCH ×4 (07:54→21:08)
[2018-02-17] MEDS: SUCRALFATE 1 G/10 ML UDC GT SCH ×4 (07:54→21:08)
[2018-02-17 08:00] VITALS: BP 143/72
--- NOTE | 2018-02-17 08:00 | NUR ---
MS RN NOTES-- BS LEVEL 100. NO INSULIN COVERAGE. NO S/SX OF HYPO/HYERPGLYCEMIA NOTED. WILL CONTINUE TO MONITOR.
--- NOTE | 2018-02-17 08:01 | NUR ---
MS RN NOTES-- EXPLAINED THE IMPORTANCE TO THE PT THE NEED TO INSERT AN NGT FOR NUTRITION. PT STATED "ABSOLUTELY NOT." PT APPEARS TO BE A BIT AGITATED WITH THE IDEA OF INSERTING AN NGT. PAGED DR. RAHMAN.
[2018-02-17] MEDS ORDERED: predniSONE 5 MG TABLET PO ONE (09:00)
[2018-02-17] MEDS: ATORVASTATIN 40 MG TABLET PO SCH (09:50)
[2018-02-17] MEDS: hydrALAZINE HCL 50 MG TABLET PO SCH ×3 (09:50→17:14)
[2018-02-17] MEDS: AMIODARONE HCL 200 MG TABLET PO SCH ×3 (09:50→17:14)
[2018-02-17] MEDS: PANTOPRAZOLE 40 MG VIAL IV SCH ×2 (09:50→17:14)
[2018-02-17] MEDS: ENSURE ENLIVE CHOC 237 ML CAN PO SCH ×3 (09:50→17:00)
[2018-02-17] MEDS: DILTIAZEM HCL CD 240 MG PO SCH (09:51)
--- NOTE | 2018-02-17 09:55 | NUR ---
MS RN NOTES-- PT SEEN AND EXAMINED BY DR. JOSIAH Owen/ LAVERN FOR CARDIAC DIET.
[2018-02-17] MEDS: Z GUARD REMEDY 4 OZ OINT TP SCH ×2 (10:07→21:06)
--- NOTE | 2018-02-17 11:00 | NUR ---
MS RN NOTES-- PT'S DTR IS AT BEDSIDE. PT IS NOT EATING AND DTR REQUESTED FOR NGT TO BE INSERTED. DR. RAHMAN MADE AWARE.
[2018-02-17] MEDS: MICAFUNGIN SODIUM 100 MG in IV NS 0.9% 100 ML IV SCH (11:51)
--- NOTE | 2018-02-17 12:00 | NUR ---
MS RN NOTES-- NGT PLACED, XRAY ORDERED AND RESULTED WITH PLACEMENT IN GASTROESOPHAGEAL JUNCTION, ADVANCED TUBING FURTHER. DR. RAHMAN MADE AWARE AND STATED TO GO AHEAD AND START FEEDING.
--- NOTE | 2018-02-17 15:41 | NUR ---
MS RN NOTES-- CHECKED RESIDUAL FROM NGT, NO RESIDUAL NOTED. FEEDING CONTINUED. HOB KEPT ELEVATED.
--- NOTE | 2018-02-17 19:51 | NUR ---
MS RN CLOSING NOTES ALL DUE MEDS GIVEN, NEEDS MET AND RENDERED. PT IS AWAKE AND ALERT. RESPIRATIONS ARE EVEN AND UNLABORED, NOT IN ANY ACUTE DISTRESS NOTED. DENIES ANY PAIN AT THIS TIME, NO C/O SOB, N/V. MIDLINE NOTED TO KOBI, INTACT, NO INFILTRATION NOTED. DRESSING KEPT CLEAN AND DRY. NGT INTACT, ON NGT FEEDING NEPRO AT 60ML/HR, TOLERATING WELL. NO RESIDUAL NOTED AT THIS TIME. HOB KEPT ELEVATED. SAFETY MEASURES ARE IN PLACE. REMINDED PT TO USE CALL LIGHT WHEN ASSISTANCE IS NEEDED, CALL LIGHT IS LEFT WITHIN REACH. ENDORSED TO NEXT SHIFT FOR CONTINUITY OF CARE.
[2018-02-17 20:00] VITALS: BP 145/59
[2018-02-17] MEDS: CEFEPIME 1 GM in IV D5W 50 ML IV SCH (21:16)
[2018-02-18 04:00] VITALS: BP 177/87
[2018-02-18] MEDS: hydrALAZINE HCL 25 MG TABLET PO PRN ×2 (04:15→08:19)
[2018-02-18] MEDS: QUETIAPINE FUMARATE 25 MG TABLET PO PRN (04:15)
[2018-02-18] MEDS: GANCICLOVIR LEFTEYE SCH ×4 (06:36→18:00)
[2018-02-18 06:41] LABS: BASOPHILS # (AUTO) 0.2 /CMM (0.0-0.2); BASOPHILS % (AUTO) 0.8 % (0.0-2.0); EOSINOPHILS % (AUTO) 0.2 % (0.0-6.0); HEMATOCRIT 25 % (39-51); HEMOGLOBIN 8.3 g/dL (13.5-17.5); LYMPHOCYTES # (AUTO) 0.3 /CMM (0.8-4.8); LYMPHOCYTES % (AUTO) 1.8 % (20.0-44.0); MEAN CORPUSCULAR HGB CONC 33 g/dl (31.0-36.0); MEAN CORPUSCULAR VOLUME 100 fL (80-96); MONOCYTES # (AUTO) 1.3 /CMM (0.1-1.30); MONOCYTES % (AUTO) 6.7 % (2.0-12.0); NEUTROPHILS # (AUTO) 17.4 /CMM (1.8-8.9); NEUTROPHILS % (AUTO) 90.5 % (43.0-81.0); PLATELET COUNT (AUTO) 293 /CMM (150-450); WHITE BLOOD COUNT (AUTO) 19.2 K/uL (4.3-11.0)
[2018-02-18 07:51] LABS: CALCIUM, SERUM 7.7 mg/dL (8.5-10.1); CARBON DIOXIDE 23 mmol/L (21-32); CHLORIDE 103 mmol/L (98-107); GLUCOSE 128 mg/dL (74-106); POTASSIUM 3.7 mmol/L (3.5-5.1); SODIUM SERUM 140 mmol/L (136-145); UREA NITROGEN, BLOOD 76 mg/dL (7-18)
[2018-02-18 08:00] VITALS: BP 136/68
[2018-02-18] MEDS: PANTOPRAZOLE 40 MG VIAL IV SCH ×2 (08:17→16:23)
[2018-02-18] MEDS: SUCRALFATE 1 G/10 ML UDC GT SCH ×4 (08:17→22:00)
[2018-02-18] MEDS: ATORVASTATIN 40 MG TABLET PO SCH (08:18)
[2018-02-18] MEDS: AMIODARONE HCL 200 MG TABLET PO SCH ×3 (08:18→18:41)
[2018-02-18] MEDS: hydrALAZINE HCL 50 MG TABLET PO SCH ×3 (08:20→17:00)
[2018-02-18] MEDS: DILTIAZEM HCL CD 240 MG PO SCH (08:20)
[2018-02-18] MEDS: ENSURE ENLIVE CHOC 237 ML CAN PO SCH ×3 (08:22→16:21)
[2018-02-18] MEDS: BLOOD SUGAR DIAGNOSTIC 1 EACH STRIP IN SCH ×4 (08:22→21:20)
[2018-02-18] MEDS: Z GUARD REMEDY 4 OZ OINT TP SCH ×2 (08:24→21:15)
[2018-02-18] MEDS: ACETAMINOPHEN 325 MG TABLET PO PRN ×2 (10:20→16:24)
[2018-02-18] MEDS: LORAZEPAM INJ 2 MG/ML VIAL IV PRN ×2 (10:21→16:24)
--- NOTE | 2018-02-18 13:47 | NUR ---
nursing notes gave full report to Scar RN for continuity of care. Told nurse to call PHP WEB DEVELOPER with CT results.
--- NOTE | 2018-02-18 14:00 | NUR ---
PARKER NOTE RECEIVED PATIENT FROM ROMY AT 13:45 THIS AFTERNOON. PATIENT IN BED RESTING, FAMILY AT BEDSIDE. NG TUBE CLAMPED, RIGHT UPPER ARM MIDLINE INTACT SALINE LOCK. BED IN LOW LOCKED POSITION, CALL LIGHT WITHIN REACH, WILL CONTINUE TO MONITOR CLOSELY.
[2018-02-18] MEDS: MICAFUNGIN SODIUM 100 MG in IV NS 0.9% 100 ML IV SCH (15:13)
--- NOTE | 2018-02-18 15:53 | NUR ---
SHRAVAN RN NOTE PER FAMILY, PATIENT DOES NOT NEED THE ANTIVIRAL CREAM ANYMORE FOR THE SHINGLES IN LEFT EYE. DAUGHTER STATED "IT WAS ORDERED FOR 5 DAYS ONLY AND IT HAS BEEN 2 WEEKS, I TOOK THE CREAM, I HAVE IT." THE OTHER DAUGHTER ASKED IF ISOLATION CAN BE NOW DISCONTINUED. WILL CLARIFY WITH MD.
[2018-02-18 16:00] VITALS: BP 131/60
--- NOTE | 2018-02-18 16:21 | NUR ---
SHRAVAN RN NOTE ENSURE CHOCOLATE SUPPLEMENT NOT ADMINISTERED BECAUSE PATIENT IS UNABLE TO TAKE PO DUE TO ALTERED MENTAL STATUS AND ON NG TUBE FEEDING.
--- NOTE | 2018-02-18 18:47 | NUR ---
SHRAVAN RN NOTE PER DOCTOR ELLIOT RAHMAN TO DISCONTINUE SHINGLES OF LEFT EYE ISOLATION PRECAUTIONS.
--- NOTE | 2018-02-18 19:25 | NUR ---
SHRAVAN RN NOTE PATIENT RESTING IN BED, NO RESPIRATORY DISTRESS NOTED. MIDLINE ON RIGHT UPPER ARM INTACT SALINE LOCK. NG TUBE FEEDING INFUSING AT 30ML/HR ORDERED PER DOCTOR RAHMAN AND INCREASED TO GOAL OF 60ML TOLERATED. SCD'S ON BILATERAL LOWER ETXREMITIES. BED IN LOW LOCKED POSITION, CALL LIGHT WITHIN REACH, SIDE RAILS UP, BED ALARM ON, ENDORSED TO EVENTS ASSISTANT FOR CONTINUITY OF CARE.
[2018-02-18 20:00] VITALS: BP 132/51
--- NOTE | 2018-02-18 20:26 | NUR ---
TD RN NOTES RECEIVED PT ON BED. A/O X 1. RESPONDING TO LIGHT PAIN AND LIGHT. ON TELE MONITOR SR 70. ON ROOM AIR SATURATING WELL. NO RESPIRATORY DISTRESS NOTED. ON NGT FEEDING. NO RESIDUAL NOTED. IV ACCESS ON KOBI MIDLINE HEPLOCK, PATENT AND INTACT. WITH HD ACCESS ON ORI AV SHUNT. HEAD OF BED ELEVATED. SIDE RAILS UP. CALL LIGHT WITHIN REACH. BED ALARM ON. WILL CONTINUE TO MONITOR PT CLOSELY.
--- NOTE | 2018-02-18 20:28 | NUR ---
TD RN NOTES ZUNIGA CATH INSERTED. DRAINING 3L DARK TEA COLORED URINE. NGT REINSERTED. DOUBLE CHECKED PLACEMENT BY 2 RN. ORDERED STAT CHEST XRAY FOR VERIFICATION OF PLACEMENT. WILL MONITOR PT CLOSELY.
[2018-02-18] MEDS: CEFEPIME 1 GM in IV D5W 50 ML IV SCH (21:14)
--- NOTE | 2018-02-18 21:47 | NUR ---
TD RN NOTES AWAITING CXR RESULTS. HOLDING NGT FEEDING FOR NOW.
--- NOTE | 2018-02-18 22:14 | NUR ---
LOGAN RN NOTES INFORMED DR GAUTHIER REGARDING CXR RESULTS. PER DR GAUTHIER CONTACT GI. INFORMED CRISTIAN OVALLES DIRECTOR OF BANDS. AWAITING ORDERS.
[2018-02-19 00:19] VITALS: BP 143/72
--- NOTE | 2018-02-19 02:36 | NUR ---
TD RN NOTES FAXED IMAGING STUDIES TO [facility] PER TRANSFER TEAM REQUEST.
[2018-02-19 04:00] VITALS: BP 136/60
--- NOTE | 2018-02-19 06:36 | NUR ---
TD RN NOTES NO ACUTE CHANGES NOTED DURING THE SHIFT. DUE MEDS GIVEN. PROVIDED COMFORT AND SAFETY. WILL ENDORSE TO THE AM NURSE FOR CONTINUITY OF CARE.
[2018-02-19 07:03] LABS: CALCIUM, SERUM 7.9 mg/dL (8.5-10.1); CARBON DIOXIDE 25 mmol/L (21-32); CHLORIDE 103 mmol/L (98-107); GLUCOSE 109 mg/dL (74-106); POTASSIUM 3.9 mmol/L (3.5-5.1); SODIUM SERUM 139 mmol/L (136-145)
--- NOTE | 2018-02-19 07:20 | NUR ---
SHRAVAN RN NOTE RECEIVED PATIENT IN BED ,ALERT WITH SOME CONFUSION, ON TELE MONITOR SR ,GTUBE G FEEDING ON HOLD AT THIS TIME , RT UPPER ARM MID LINE IN PLACE ,WITH ZUNIGA CATH TO GRAVITY WITH YELLOW SANTANA COLOR BED IN LOWEST AND LOCKED POSITION NOT IN IN ACUTE DISTRESS, NO SOB NOTED, SAT 99% AT THIS TIME ,WILL CONT TO MONITOR CLOSELY
--- NOTE | 2018-02-19 07:45 | NUR ---
SHRAVAN RN NOTE DAUGHTER AT BEDSIDE WANTS TO TAKE HIS FATHER AMA ,EXPLAINED THAT NOT SAFETY TO TAKE HOME ,BUT STATED THAT SHE ARRANGED BED IN OTHER HOSPITAL ,DONT WANT WAIT TILL DR SEE PATIENT HER FATHER, SIGNED FORM AMA ,N GTUBE REMOVED , ZUNIGA CATH REMOVED , REQUESTED TO LEAVE MID LINE IN PLACE , CALLED TO DR WALTER BRUNNER LEFT A MESSAGE THAT PATIENT WANTS TO GO AMA WILL AWAIT FOR RETURN CALL ,CHARGE NURSE NOTIFIED,
[2018-02-19 08:00] VITALS: BP 147/43
--- NOTE | 2018-02-19 08:00 | NUR ---
SHRAVAN RN NOTE PLACED TO W\C BELONGING SIGNED ,ALL MEDS FROM HOME STATED THAT TAKEN BEFORE FROM OUR PHARMACY , WENT TO LOBBY WITH CONSTRUCTION SUPERVISOR WITH STABLE CONDITION,INSTRUCTED TO FOLLOWUP WITH PRIMARY CARE DOCTOR FOR FURTHER ORDERS
--- NOTE | 2018-02-19 08:00 | NUR ---
SHRAVAN RN NOTE FAMILY REFUSED TO PICTURE OF SKIN UPON TO GO AMA
[2018-02-19 08:30] LABS: UREA NITROGEN, BLOOD 86 mg/dL (7-18)
== END 2018-02-19 08:00 | disposition left against medical advice (07) | DRG 871 ==
LOC: ER 23:07 → TELE1 02-05 01:30 → ICU 02-06 16:42 → TELE-TD 02-08 21:50 → MEDSG1 02-11 10:18 → TELE-TD 02-11 12:18 → MEDSG1 02-11 22:13 → TELE-TD 02-18 14:09
PROVIDERS: ADMIT Family Medicine; ATTEND Internal Medicine
PROC: 5A1D70Z Performance of Urinary Filtration, Intermittent, Less than 6 Hours Per Day (ICD-10-PCS; 2018-02-05)
PROC: 05H533Z Insertion of Infusion Device into Right Subclavian Vein, Percutaneous Approach (ICD-10-PCS; principal; 2018-02-06)
PROC: B546ZZA Ultrasonography of Right Subclavian Vein, Guidance (ICD-10-PCS; 2018-02-06)
PROC: 5A1D70Z Performance of Urinary Filtration, Intermittent, Less than 6 Hours Per Day (ICD-10-PCS; 2018-02-07)
PROC: 5A1D70Z Performance of Urinary Filtration, Intermittent, Less than 6 Hours Per Day (ICD-10-PCS; 2018-02-09)
PROC: 5A1D70Z Performance of Urinary Filtration, Intermittent, Less than 6 Hours Per Day (ICD-10-PCS; 2018-02-11)
PROC: 5A1D70Z Performance of Urinary Filtration, Intermittent, Less than 6 Hours Per Day (ICD-10-PCS; 2018-02-13)
PROC: 0DB98ZX Excision of Duodenum, Via Natural or Artificial Opening Endoscopic, Diagnostic (ICD-10-PCS; 2018-02-15)
PROC: 0DB78ZX Excision of Stomach, Pylorus, Via Natural or Artificial Opening Endoscopic, Diagnostic (ICD-10-PCS; 2018-02-15)
PROC: 0DB38ZX Excision of Lower Esophagus, Via Natural or Artificial Opening Endoscopic, Diagnostic (ICD-10-PCS; 2018-02-15)
PROC: 5A1D70Z Performance of Urinary Filtration, Intermittent, Less than 6 Hours Per Day (ICD-10-PCS; 2018-02-16)
DX: A41.9 Sepsis, unspecified organism (principal); N18.6 End stage renal disease; J18.9 Pneumonia, unspecified organism; I21.A1 Myocardial infarction type 2; G92 Toxic encephalopathy; B00.4 Herpesviral encephalitis; I13.2 Hypertensive heart and chronic kidney disease with heart failure and with stage 5 chronic kidney disease, or end stage renal disease; D68.59 Other primary thrombophilia; B02.39 Other herpes zoster eye disease; I82.619 Acute embolism and thrombosis of superficial veins of unspecified upper extremity; B37.81 Candidal esophagitis; E86.0 Dehydration; Z99.2 Dependence on renal dialysis; I16.0 Hypertensive urgency; I25.10 Atherosclerotic heart disease of native coronary artery without angina pectoris; E78.5 Hyperlipidemia, unspecified; Z79.82 Long term (current) use of aspirin; Z79.01 Long term (current) use of anticoagulants; Z79.899 Other long term (current) drug therapy; I48.91 Unspecified atrial fibrillation; Z98.2 Presence of cerebrospinal fluid drainage device; Z95.5 Presence of coronary angioplasty implant and graft; Z95.2 Presence of prosthetic heart valve; Z95.1 Presence of aortocoronary bypass graft; Z87.891 Personal history of nicotine dependence; Z86.61 Personal history of infections of the central nervous system; Z80.0 Family history of malignant neoplasm of digestive organs; I25.2 Old myocardial infarction; I27.20 Pulmonary hypertension, unspecified; I50.9 Heart failure, unspecified; I11.0 Hypertensive heart disease with heart failure; D63.8 Anemia in other chronic diseases classified elsewhere; D50.9 Iron deficiency anemia, unspecified; G47.33 Obstructive sleep apnea (adult) (pediatric); E87.6 Hypokalemia; I73.9 Peripheral vascular disease, unspecified; K29.70 Gastritis, unspecified, without bleeding; K29.80 Duodenitis without bleeding; K44.9 Diaphragmatic hernia without obstruction or gangrene
CPT/HCPCS: 36415; 36569; 36600; 62270; 70450-TC; 70551-TC; 71045-TC; 80048-TC; 80053-TC; 80061-TC; 80076-TC; 80202-TC; 81000-TC; 82272-TC; 82803-TC; 82962-TC; 83540-TC; 83605-TC; 83735-TC; 83880; 84100-TC; 84443-TC; 84484-TC; 85025-TC; 85610-TC; 85652-TC; 85730-TC; 86140-TC; 86225; 86235; 86787; 86788; 86789; 87040-TC; 87070-TC; 87081-TC; 87086-TC; 87400; 87806; 88305-TC; 88313-TC; 88342; 89051-TC; 90935-TC; 93307-TC; 93971-TC; 94799-TC; 95819-TC; 97110-TC; 97530-TC; A4217; A6402; C9113; G0378; J0133; J0282; J0360; J0692; J0696; J0885; J1644; J2060; J2185; J2248; J2543; J3370; J3490; J7030; J7040; J7050; J7060; J7512